=== PATIENT | female | born 1940 | race Caucasian/White ===

== ENCOUNTER → 2018-07-21 13:24 | Outpatient (REF) | payer OTHER, SELFPAY | LOC: LAB 13:24 | PROVIDERS: PCP Family Medicine; Visit Provider Family Medicine | DX: R31.9 Hematuria, unspecified (principal) | CPT/HCPCS: 87086 ==

== ENCOUNTER → 2019-02-20 13:19 | Outpatient (CLI) | payer OTHER, SELFPAY ==
--- NOTE | 2019-02-20 | DI.RAD.S_ITS ---
PROCEDURE: XR CHEST 2V INDICATIONS: COUGH TECHNIQUE: 2 views of the chest were acquired. COMPARISON: [facility], , CHEST 2 VIEW, 08/18/2014, 11:07. FINDINGS: Surgical changes and devices: None. Lungs and pleura: Lungs are clear but the lung volumes are relatively large. COPD may be present.. No pleural effusions or pneumothorax. Mediastinum: Mediastinal contours are normal. Heart size is normal. Bones and chest wall: No suspicious bony abnormalities. Soft tissues appear unremarkable. IMPRESSION: Normal for age except for a relatively large lung volumes which could indicate presence of COPD. However, aggressive inspiratory effort also could produce this appearance. Source of current persistent cough symptoms is not seen. Dictated by: Mao Parham M.D. on 02/20/2019 at 15:05 Approved by: Mao Parham M.D. on 02/20/2019 at 15:06
== END ==
PROVIDERS: PCP Student in an Organized Health Care Education/Training Program; Visit Provider Internal Medicine
DX: R05 Cough (principal)
CPT/HCPCS: 71046

== ENCOUNTER → 2019-03-06 14:56 | Outpatient (CLI) | payer OTHER, SELFPAY ==
--- NOTE | 2019-03-06 | DI.US.S_ITS ---
PROCEDURE: US SOFT TISSUE HEAD AND NECK INDICATIONS: L NECK MASS TECHNIQUE: Real-time scanning was performed of the neck region of interest, with image documentation. COMPARISON: None. FINDINGS: No sonographic abnormality seen involving the left supraclavicular fossa in the region of swelling. IMPRESSION: 1. No sonographic abnormality. Dictated by: Fadi MILLER Interpreted: Mao Parham MD on 03/06/2019 at 16:30 Approved by: Mao Parham M.D. on 03/06/2019 at 17:53
== END ==
PROVIDERS: PCP Student in an Organized Health Care Education/Training Program; Visit Provider Student in an Organized Health Care Education/Training Program
DX: R22.1 Localized swelling, mass and lump, neck (principal); Z12.31 Encounter for screening mammogram for malignant neoplasm of breast
CPT/HCPCS: 76536

== ENCOUNTER → 2019-03-25 08:57 | Outpatient (CLI) | payer OTHER, SELFPAY ==
--- NOTE | 2019-03-25 | DI.US.S_ITS ---
ULTRASOUND OF LEFT BREAST: 03/25/2019 CLINICAL: Palpable left breast lump by physician. Comparison is made to exams dated: 03/25/2019 mammogram, 10/22/2014 mammogram, 03/24/2011 mammogram, 10/10/2013 mammogram, 10/08/2012 mammogram, and 10/06/2011 mammogram - [facility]. Real-time ultrasound of the left breast was performed. Connolly scale images of the real-time examination were reviewed. No abnormalities were seen sonographically in the left breast. IMPRESSION: NEGATIVE There is no sonographic evidence of malignancy. There is no abnormality seen in the left breast to correspond with the area of clinical concern at 1 o'clock position or the upper outer quadrant, however, clinical followup is recommended for persistent clinical symptoms. A 1 year screening mammogram is recommended. This exam was interpreted at Station ID: [id number]. Electronically Signed By: Janes Meraz M.D. aty/:03/25/2019 10:16:33 letter sent: Normal Exam Ultrasound BI-RADS: 1 Negative
--- NOTE | 2019-03-25 | DI.MG.S_ITS ---
BILATERAL DIGITAL DIAGNOSTIC MAMMOGRAM 3D/2D: 03/25/2019 CLINICAL: Left breast mass Family history of breast cancer. Comparison is made to exams dated: 10/22/2014 mammogram, 10/10/2013 mammogram, and 10/08/2012 mammogram - [facility]. The tissue of both breasts is extremely dense, which lowers the sensitivity of mammography. No significant masses, calcifications, or other findings are seen in either breast. IMPRESSION: INCOMPLETE: NEEDS ADDITIONAL IMAGING EVALUATION There is no abnormality seen in the left breast to correspond with the area of clinical concern in the upper outer quadrant, however, ultrasound is recommended and is scheduled to immediately follow this examination. This exam was interpreted at Station ID: [id number]. NOTE: For mammograms, a report in lay terms will be sent to the patient. Approximately 15% of breast malignancies will not be visualized mammographically. In the management of a palpable breast mass, a negative mammogram must not discourage biopsy of a clinically suspicious lesion. Electronically Signed By: Janes Meraz M.D. aty/:03/25/2019 10:14:43 ACR BI-RADS Category 0: Incomplete [id number]
== END ==
PROVIDERS: PCP Student in an Organized Health Care Education/Training Program; Visit Provider Student in an Organized Health Care Education/Training Program
DX: R92.8 Other abnormal and inconclusive findings on diagnostic imaging of breast (principal); N63.21 Unspecified lump in the left breast, upper outer quadrant; Z85.3 Personal history of malignant neoplasm of breast
CPT/HCPCS: 76642; 77066; G0279

== ENCOUNTER → 2019-09-04 14:52 | Outpatient (CLI) | payer OTHER, SELFPAY ==
--- NOTE | 2019-09-04 | DI.RAD.S_ITS ---
PROCEDURE: XR FEMUR RT MIN 2V INDICATIONS: right leg pain TECHNIQUE: 4 views of the femur were acquired. COMPARISON: None. FINDINGS: Bones: No fractures or dislocations. No suspicious bony lesions. Soft tissues: No suspicious soft tissue calcifications or masses. IMPRESSION: No trauma found, source of pain is not seen. Dictated by: Mao Parham M.D. on 09/04/2019 at 15:30 Approved by: Mao Parham M.D. on 09/04/2019 at 15:31
== END ==
PROVIDERS: PCP Student in an Organized Health Care Education/Training Program; Visit Provider Student in an Organized Health Care Education/Training Program
DX: M79.604 Pain in right leg (principal)
CPT/HCPCS: 73552

== ENCOUNTER → 2020-01-03 07:29 | Outpatient (CLI) | payer OTHER, SELFPAY ==
--- NOTE | 2020-01-03 | DI.MRI.S_ITS ---
PROCEDURE: MR FEMUR RT WO CON INDICATIONS: Pain in right leg TECHNIQUE: Noncontrast coronal and sagittal T1 spin echo and STIR; axial T1 spin echo and T2 fast spin echo with fat saturation through the right thigh. COMPARISON: [facility], CR, XR FEMUR RT MIN 2V, 09/04/2019, 14:58. FINDINGS: Image quality: Excellent. Bones: The visualized bone marrow demonstrates normal signal on all sequences. The overlying cortex appears intact. No fractures lines or intra-osseous lesions. Mild right hip joint osteoarthritic changes are seen. No evidence of avascular necrosis of femoral head. Soft tissues: The scanned muscles demonstrate normal overall bulk and internal signal. Subcutaneous tissues appear normal as well. No soft tissue masses are present. Small amount of right knee joint effusion is seen. No intra-articular loose body. IMPRESSION: 1. 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 No marrow edema. No suspicious bony lesion. No fracture or dislocation. No evidence of avascular necrosis of femoral head. 2. Small right knee joint effusion, no intra-articular loose body. No muscle or tendon abnormality is seen in right side. No finding to explain patient's symptoms. Dictated by: Bebo Kat M.D. on 01/03/2020 at 10:53 Approved by: Bebo Kat M.D. on 01/03/2020 at 11:27
== END ==
PROVIDERS: PCP Student in an Organized Health Care Education/Training Program; Referring Provider Student in an Organized Health Care Education/Training Program; Visit Provider Student in an Organized Health Care Education/Training Program
DX: M79.604 Pain in right leg (principal); M16.11 Unilateral primary osteoarthritis, right hip; M17.11 Unilateral primary osteoarthritis, right knee; M25.461 Effusion, right knee
CPT/HCPCS: 73718

== ENCOUNTER → 2020-06-08 13:33 | Outpatient (CLI) | payer OTHER, SELFPAY ==
--- NOTE | 2020-06-08 | DI.RAD.S_ITS ---
PROCEDURE: XR DEXA AXIAL SKELETON INDICATIONS: OSTEOPENIA COMPARISON: None. FINDINGS: This blank DEXA report has been sent in error by the PACS system. The correct and complete report will be forthcoming in 1-2 days. Thank you for your patience and understanding. Dictated by: Jen Martinez MD, PhD on 06/08/2020 at 16:50 Approved by: Jen Martinez MD, PhD on 06/08/2020 at 16:50
== END ==
PROVIDERS: PCP Student in an Organized Health Care Education/Training Program; Referring Provider Student in an Organized Health Care Education/Training Program; Visit Provider Student in an Organized Health Care Education/Training Program
DX: M85.852 Other specified disorders of bone density and structure, left thigh (principal); Z78.0 Asymptomatic menopausal state; Z82.62 Family history of osteoporosis
CPT/HCPCS: 77080

== ENCOUNTER 2020-09-12 11:56 | Emergency (ER) | payer OTHER, SELFPAY ==
[2020-09-12] VITALS (13 sets, daily range): BP systolic 139–215; BP diastolic 77–92; PULSE 81–126; RESP 13–23; TEMP 36.9; O2SAT 97–100; BMI 21.9
--- NOTE | 2020-09-12 12:12 | DI.RAD.S_ITS ---
PROCEDURE: XR CHEST 1V INDICATIONS: chest pain TECHNIQUE: One view of the chest was acquired. COMPARISON: [facility]ed With [facility], , CHEST 2 VIEW, 08/18/2014, 11:07. Merged With [facility], , XR CHEST 2V, 02/20/2019, 13:31. FINDINGS: Surgical changes and devices: None. Lungs and pleura: On this semiupright portable chest examination, no large pneumothorax or large pleural effusions are seen. No focal infiltrates are seen. Mediastinum: The cardiac contours are within normal limits. The aorta demonstrates calcification and tortuosity. Bones and chest wall: No suspicious bony lesions. Age-appropriate bony degenerative changes are seen. Overlying soft tissues appear unremarkable. IMPRESSION: Portable chest study within normal limits for age. Dictated by: Christian Moser M.D. on 09/12/2020 at 11:24 Approved by: Christian Moser M.D. on 09/12/2020 at 11:24
[2020-09-12 12:27] LABS: Add Manual Diff / Slide Review NO; Basophils Absolute Auto 0 /uL (0-100); Basophils Percent Auto 0.6 % (0-2); Eosinophils Absolute Auto 100 /uL (0-450); Hematocrit 45.4 % (36-46); Lymphocytes Absolute Auto 2100 /uL (1100-4500); Lymphocytes Percent Auto 30.3 % (25-40); Mean Corpuscular Hemoglobin 31.2 PG (26-34); Mean Corpuscular Volume 94.8 fL (80-100); Monocytes Absolute Auto 400 /uL (0-900); Monocytes Percent Auto 6.2 % (3-14); Neutrophils Absolute Auto 4300 /uL (1500-7000); Neutrophils Percent Auto 61.9 % (50-75); Platelet Count 302 X10^3/uL (150-400); Red Blood Cell Count 4.79 X10^6/uL (4.0-5.2); Red Cell Distribution Width 13.7 % (11.6-14.8)
[2020-09-12 12:40] LABS: Alanine Aminotransferase 17 IU/L (<35); Albumin 4.7 g/dL (3.5-5.0); Albumin Globulin Ratio 1.4 (1.0-2.8); Alkaline Phosphatase 63 U/L (38-126); Aspartate Aminotransferase 27 IU/L (14-36); BUN Creatinine Ratio 17.8 (6-22); Bilirubin Total 0.3 mg/dL (0.2-1.3); Blood Urea Nitrogen 13 mg/dL (7-17); Calcium 10.5 mg/dL (8.4-10.2); Carbon Dioxide 29 mmol/L (22-32); Chloride 104 mmol/L (98-107); Creatine Kinase 36 U/L (30-135); Estimated Glomerular Filt Rate > 60.0 mL/min (>60); Globulin 3.3 g/dL (1.7-4.1); Glucose 133 mg/dL (80-110); HEMOLYSIS < 15 (0-50); INR 0.9 (0.9-1.3); Lipase 156 U/L (23-300); Sodium 140 mmol/L (137-145)
[2020-09-12 12:42] LABS: PTT Partial Thromboplastin Tim 27 SECONDS (26.4-36.2)
[2020-09-12 12:51] LABS: Troponin I < 0.012 ng/mL (0.01-0.034)
[2020-09-12 12:54] LABS: NT-proBNP (BNP-Adult 18+) 132 pg/mL (<450)
--- NOTE | 2020-09-12 13:05 | ED.ARRPALP ---
HPI - Arrhythmia/Palpitations General Chief Complaint: Arrhythmia/Palpitations Stated Complaint: arrhythmia Time Seen by Provider: 09/12/20 11:58 Source: patient Mode of arrival: Ambulatory Limitations: no limitations History of Present Illness HPI narrative: Patient is a 80-year-old female no past known medical history who does admit to drinking alcohol daily presents today with heart palpitations. She says since around 5:00 a.m. she has felt her heart skip a beat. She denies any chest pain dizziness or lightheadedness. She denies any syncopal episodes. She says she has just felt her heart skipping a beat. She admits to drinking 2 cups of coffee daily but no other significant caffeine use. She is drinks about a 6 pack of Wilkes light daily. No prior history of alcohol withdrawal, and she drink that last night. MD complaint: skipped beats Onset (ago): hour(s) Duration: constant Context: occurred during rest Related Data Home Medications Medication Instructions Recorded Confirmed acetaminophen 650 mg PO QID PRN #0 02/22/17 09/12/20 cholecalciferol (vitamin D3) 4,000 iu PO QDAY #0 02/22/17 09/12/20 [Vitamin D3] alendronate 70 mg PO DAILY 09/12/20 09/12/20 fluticasone propionate 1 spray INTRANASAL DAILY 09/12/20 09/12/20 Allergies Allergy/AdvReac Type Severity Reaction Status Date / Time codeine Allergy Mild N/V Verified 09/12/20 12:09 hydrocodone [HYDROCODONE] Allergy Mild N/V Verified 09/12/20 12:09 oxycodone [OXYCODONE] Allergy Mild N/V Verified 09/12/20 12:09 propoxyphene [From DARVON] Allergy Mild N/V Verified 09/12/20 12:09 bupivacaine Allergy Unknown Verified 09/12/20 12:09 NARCOTIC ANTAGONIST OBSOLETE Allergy Unknown UNK Uncoded 11/22/17 13:07 Review of Systems Review of Systems Narrative: GENERAL: Denies chills, fatigue, malaise, fever, sweats, travel HEENT: Denies sinus pain, ear pain, sore throat, difficulty swallowing, neck pain RESPIRATORY: Denies dyspnea, cough, wheezing, hemoptysis, sputum. CARDIOVASCULAR: See HPI GASTROINTESTINAL: Denies nausea, vomiting, abdominal pain, diarrhea, constipation, melena. : Denies dysuria, frequency, incontinence, hematuria, urinary retention, flank pain. MUSCULOSKELETAL: Denies weakness, joint pain, or bony pain SKIN: No rash, no erythema, no pruritus NEUROLOGIC: Denies weakness, dizziness, headache, numbness, change in speech, confusion PSYCHIATRIC: No concerning psychosocial issues. 12 point review of systems is negative except for those stated above and HPI Patient History Medical History Patient denies medical problems Social History Smoking Status: Former smoker Smoking Status: Former smoker alcohol intake frequency: 3 or more drinks per day Alcohol type: beer Substance Use Type: does not use Exam Initial Vital Signs Initial Vital Signs: Vital Signs Temperature 98.5 F 09/12/20 12:00 Pulse Rate 126 H 09/12/20 12:00 Respiratory Rate 16 09/12/20 12:00 Blood Pressure 215/92 H 09/12/20 12:00 Pulse Oximetry 100 09/12/20 12:00 GENERAL: Well-appearing, well-nourished and in no acute distress. HEENT: Head atraumatic,EOMI, pupils reactive, face symmetric, moist mucous membranes CARDIOVASCULAR: Tachycardic regular no murmurs RESPIRATORY: Breath sounds equal bilaterally, no wheezes rales or rhonchi. ABDOMEN: Soft, nontender. Normoactive bowel sounds all 4 quadrants. No guarding or rebound. EXTREMITIES: Normal range of motion, no clubbing or edema. Neurovascularly intact NEUROLOGICAL: Alert and oriented x4.Normal gait and speech. Cranial nerves II through XII grossly intact. SKIN: Warm, dry, no laceration, no petechiae, no rashes or lesions. Course Orders Ordered: ED Orders 09/12/20 12:12 XR chest 1V Stat EKG-12 Lead Stat 09/12/20 12:15 BNP [NT-proBNP (BNP-Adult 18+)] Stat Complete Blood Count AUTO DIFF Stat Comprehensive Metabolic Panel Stat Lipase Stat Magnesium Stat Partial Thromboplastin Time Stat Prothrombin Time INR Stat TSH w/ Reflex to FT4 Stat Troponin & CK Cardiac Panel Stat Discontinued Medications Sodium Chloride (Normal Saline 0.9%) 1,000 mls @ 1,000 mls/hr IV BOLUS ONE Stop: 09/12/20 14:46 Last Infusion: 09/12/20 14:32 Dose: 0 mls/hr Documented by: Admin: 09/12/20 13:40 Dose: 1,000 mls/hr Documented by: SARA Vital Signs Vital signs: Vital Signs - 8 hr 09/12/20 12:00 09/12/20 12:05 09/12/20 12:15 Temperature 98.5 F Pulse Rate 126 H 123 H 123 H Respiratory Rate 16 16 Blood Pressure 215/92 H Pulse Oximetry 100 100 09/12/20 12:30 09/12/20 12:45 09/12/20 13:00 Temperature Pulse Rate 104 H 96 H 94 H Respiratory Rate 14 14 13 Blood Pressure Pulse Oximetry 97 97 09/12/20 13:15 09/12/20 13:30 09/12/20 13:45 Temperature Pulse Rate 89 89 86 Respiratory Rate 15 14 14 Blood Pressure Pulse Oximetry 97 99 98 09/12/20 13:51 09/12/20 14:00 09/12/20 14:15 Temperature Pulse Rate 92 H 92 H 81 Respiratory Rate 23 14 13 Blood Pressure 139/77 180/80 H Pulse Oximetry 99 100 99 09/12/20 14:30 Temperature Pulse Rate 87 Respiratory Rate 23 Blood Pressure Pulse Oximetry 99 MDM - Arrhythmia/Palpitations Lab Data Attestation: I reviewed the patient's lab results. Result diagrams: 09/12/20 12:15 09/12/20 12:15 Labs: Lab Results 09/12/20 09/12/20 09/12/20 Range/Units 12:15 12:15 12:15 WBC 7.0 (4.5-11.0) X10^3/uL RBC 4.79 (4.0-5.2) X10^6/uL Hgb 15.0 (12.0-16.0) g/dL Hct 45.4 (36-46) % MCV 94.8 (80-100) fL MCH 31.2 (26-34) PG MCHC 33.0 (30-36) % RDW 13.7 (11.6-14.8) % Plt Count 302 (150-400) X10^3/uL Neut % (Auto) 61.9 (50-75) % Lymph % (Auto) 30.3 (25-40) % Meagher % (Auto) 6.2 (3-14) % Eos % (Auto) 1.0 L (2-4) % Baso % (Auto) 0.6 (0-2) % Neut # (Auto) 4300 (9115-6184) /uL Lymph # (Auto) 2100 (8736-5940) /uL Meagher # (Auto) 400 (0-900) /uL Eos # (Auto) 100 (0-450) /uL Baso # (Auto) 0 (0-100) /uL PT 10.0 L (10.1-12.7) SECONDS INR 0.9 (0.9-1.3) APTT 27 (26.4-36.2) SECONDS Sodium 140 (137-145) mmol/L Potassium 4.0 (3.4-5.1) mmol/L Chloride 104 (98-107) mmol/L Carbon Dioxide 29 (22-32) mmol/L BUN 13 (7-17) mg/dL Creatinine 0.73 (0.52-1.04) mg/dL Estimated GFR > 60.0 (>60) mL/min BUN/Creatinine Ratio 17.8 (6-22) Glucose 133 H (80-110) mg/dL Calcium 10.5 H (8.4-10.2) mg/dL Magnesium 2.0 (1.6-2.3) mg/dL Total Bilirubin 0.3 (0.2-1.3) mg/dL AST 27 (14-36) IU/L ALT 17 (<35) IU/L Alkaline Phosphatase 63 (38-126) U/L Total Creatine Kinase 36 (30-135) U/L CK-MB (CK-2) TNP CK-MB (CK-2) Rel Index TNP Troponin I < 0.012 (0.01-0.034) ng/mL NT-Pro-B Natriuret Pep (<450) pg/mL Total Protein 8.0 (6.3-8.2) g/dL Albumin 4.7 (3.5-5.0) g/dL Globulin 3.3 (1.7-4.1) g/dL Albumin/Globulin Ratio 1.4 (1.0-2.8) Lipase 156 (23-300) U/L TSH (0.47-4.68) uIU/mL 09/12/20 09/12/20 Range/Units 12:15 12:15 WBC (4.5-11.0) X10^3/uL RBC (4.0-5.2) X10^6/uL Hgb (12.0-16.0) g/dL Hct (36-46) % MCV (80-100) fL MCH (26-34) PG MCHC (30-36) % RDW (11.6-14.8) % Plt Count (150-400) X10^3/uL Neut % (Auto) (50-75) % Lymph % (Auto) (25-40) % Meagher % (Auto) (3-14) % Eos % (Auto) (2-4) % Baso % (Auto) (0-2) % Neut # (Auto) (1832-7381) /uL Lymph # (Auto) (5431-0133) /uL Meagher # (Auto) (0-900) /uL Eos # (Auto) (0-450) /uL Baso # (Auto) (0-100) /uL PT (10.1-12.7) SECONDS INR (0.9-1.3) APTT (26.4-36.2) SECONDS Sodium (137-145) mmol/L Potassium (3.4-5.1) mmol/L Chloride (98-107) mmol/L Carbon Dioxide (22-32) mmol/L BUN (7-17) mg/dL Creatinine (0.52-1.04) mg/dL Estimated GFR (>60) mL/min BUN/Creatinine Ratio (6-22) Glucose (80-110) mg/dL Calcium (8.4-10.2) mg/dL Magnesium (1.6-2.3) mg/dL Total Bilirubin (0.2-1.3) mg/dL AST (14-36) IU/L ALT (<35) IU/L Alkaline Phosphatase (38-126) U/L Total Creatine Kinase (30-135) U/L CK-MB (CK-2) CK-MB (CK-2) Rel Index Troponin I (0.01-0.034) ng/mL NT-Pro-B Natriuret Pep 132 (<450) pg/mL Total Protein (6.3-8.2) g/dL Albumin (3.5-5.0) g/dL Globulin (1.7-4.1) g/dL Albumin/Globulin Ratio (1.0-2.8) Lipase (23-300) U/L TSH 1.60 (0.47-4.68) uIU/mL Imaging Data Chest x-ray: Radiologist's Impresson: PROCEDURE: XR CHEST 1V INDICATIONS: chest pain TECHNIQUE: One view of the chest was acquired. COMPARISON: [facility], , CHEST 2 VIEW, 08/18/2014, 11:07. [facility], , XR CHEST 2V, 02/20/2019, 13:31. FINDINGS: Surgical changes and devices: None. Lungs and pleura: On this semiupright portable chest examination, no large pneumothorax or large pleural effusions are seen. No focal infiltrates are seen. Mediastinum: The cardiac contours are within normal limits. The aorta demonstrates calcification and tortuosity. Bones and chest wall: No suspicious bony lesions. Age-appropriate bony degenerative changes are seen. Overlying soft tissues appear unremarkable. IMPRESSION: Portable chest study within normal limits for age. Dictated by: Christian Moser M.D. on 09/12/2020 at 11:24 ECG Data Attestation: I personally reviewed and interpreted this ECG as follows: Prior ECG tracings: not available for review Interpretation: Sinus tachycardia rate 110 p.r. interval 150 QRS [address] changes MDM Narrative Medical decision making narrative: Patient's heart rate improved with IV fluid. She is noted to be hypertensive in the emergency department no prior history of hypertension. She seems to be asymptomatic at this time no sign of end-organ damage. At this time I recommend home monitoring and follow-up with primary care provider. We also discussed decreasing alcohol use she states she is trying she does not drink every day just couple times of week. Discharge Plan Departure Patient Disposition: Home Clinical Impression: Symptomatic PVCs Instructions: Premature Ventricular Beats, Essential Hypertension Activity Restrictions/Additional Instructions: *You have been diagnosed with her palpitations, PVCs *What to do: At this time blood work is overall reassuring. It is recommended that he stay hydrated decreased her alcohol intake. Please check her blood pressure once daily and record your primary care provider. You may require blood pressure medication it is noted to be elevated in the emergency department today. *Continue to take medications as directed *Follow up with your primary care provider in 2-3 days *Return to ER if you should have in increasing palpitations, chest pain, shortness of breath, dizziness, lightheadedness, passing out or any new, worsening or concerning symptoms Prescriptions: No Action acetaminophen 325 mg tablet 650 mg PO QID PRN (Reason: Pain (Scale Score 4-6)) Qty: 0 RF: 0 cholecalciferol (vitamin D3) [Vitamin D3] 2,000 UNIT capsule 4,000 iu PO QDAY Qty: 0 RF: 0 fluticasone propionate 50 mcg/actuation spray,suspension 1 spray INTRANASAL DAILY RF: 0 alendronate 70 mg tablet 70 mg PO DAILY RF: 0 Referrals: Christy Berry ARNP [Primary Care Provider] -
[2020-09-12] MEDS: SODIUM CHLORIDE 0.9% 1,000 ML 1000 ML IV (13:40)
== END 2020-09-12 14:43 | disposition home or self-care (01) ==
PROVIDERS: Emergency Provider Emergency Medicine; PCP Nurse Practitioner Family
DX: I49.3 Ventricular premature depolarization (principal); I10 Essential (primary) hypertension; R07.9 Chest pain, unspecified
CPT/HCPCS: 36415; 71045; 80053; 82550; 83690; 83735; 83880; 84443; 84484; 85025; 85610; 85730; 93005; 96360; 99283; 99284

== ENCOUNTER → 2021-07-13 12:05 | Outpatient (CLI) | payer OTHER, SELFPAY ==
--- NOTE | 2021-07-13 12:09 | DI.RAD.S_ITS ---
PROCEDURE: XR LUMBAR SPINE 2-3V INDICATIONS: LOW BACK PAIN TECHNIQUE: 3 views of the lumbar spine were acquired. COMPARISON: CR, CHEST 2 VIEW, 08/18/2014, 11:07. FINDINGS: Bones: 5 [id number] vertebrae are present. Trace levo curvature centered at the T11 level. Grade 1 spondylolisthesis L4-L5. Mild multilevel disc degeneration and moderate facet joint arthropathy at the L4-L5 and L5-S1 levels.. No vertebral body compression fractures. No suspicious bony lesions. Soft tissues: Overlying bowel gas pattern is normal. No suspicious soft tissue calcifications. IMPRESSION: Multilevel spondylosis. Dictated by: Fadi Campos [facility] Interpreted: Clary Parrish MD on 07/13/2021 at 13:29 Transcribed by: MIROSLAVA on 07/13/2021 at 13:30 Approved by: Clary Parrish M.D. on 07/13/2021 at 16:46
== END ==
PROVIDERS: PCP Nurse Practitioner Family; Referring Provider Internal Medicine; Visit Provider Internal Medicine
DX: M54.50 Low back pain, unspecified (principal); M47.816 Spondylosis without myelopathy or radiculopathy, lumbar region; M47.817 Spondylosis without myelopathy or radiculopathy, lumbosacral region
CPT/HCPCS: 72100

== ENCOUNTER → 2021-08-17 10:58 | Outpatient (CLI) | payer OTHER, SELFPAY ==
--- NOTE | 2021-08-17 11:04 | DI.US.S_ITS ---
PROCEDURE: US PERIPH VENOUS LOW EXTREM LT INDICATIONS: RULE OUT DVT TECHNIQUE: Real-time imaging, as well as color and pulse Doppler interrogation, were performed of the lower extremity deep veins from the inguinal ligament to the popliteal fossa. COMPARISON: None. FINDINGS: The common femoral, femoral and popliteal veins are normally compressible, and free of intraluminal thrombus. Color and pulse Doppler demonstrate normal phasic intraluminal flow. There is normal augmentation response to distal compression maneuver. IMPRESSION: No deep venous thrombosis identified within the left lower extremity. Dictated by: Fadi Campos [facility] Interpreted: Mame Cadena MD on 08/17/2021 at 12:04 Transcribed by: SD on 08/17/2021 at 12:06 Approved by: Mame Cadena M.D. on 08/17/2021 at 16:08
--- NOTE | 2021-08-17 11:04 | DI.RAD.S_ITS ---
PROCEDURE: XR KNEE LT 3V INDICATIONS: LT KNEE PAIN TECHNIQUE: 3 views of the knee were acquired. COMPARISON: [facility], , KNEE 3V RIGHT, 12/25/2015, 14:45. FINDINGS: Bones: No fractures or dislocations. No suspicious bony lesions. Mild degenerative change. Soft tissues: Small joint effusion. No suspicious soft tissue calcifications. IMPRESSION: Mild degenerative change. Small knee joint effusion. No evidence acute bony abnormality of the left knee. If clinical suspicion and/or symptoms persist, further assessment with repeat plain films, or advanced imaging (e.g., CT, MRI, or bone scan) may be helpful for further assessment. Dictated by: Xander Adams M.D. on 08/17/2021 at 14:04 Approved by: Xander Adams M.D. on 08/17/2021 at 14:07
== END ==
PROVIDERS: PCP Internal Medicine; Referring Provider Internal Medicine; Visit Provider Internal Medicine
DX: M25.462 Effusion, left knee (principal); M79.605 Pain in left leg; M25.562 Pain in left knee; M79.89 Other specified soft tissue disorders
CPT/HCPCS: 73562; 93971

== ENCOUNTER 2021-11-04 03:36 | Observation (INO) | payer OTHER, SELFPAY ==
[2021-11-04] VITALS (27 sets, daily range): BP systolic 113–214; BP diastolic 51–108; PULSE 71–110; RESP 12–22; TEMP 36.2–37.7; O2SAT 95–100; BMI 22.6; BMI 23.7
--- NOTE | 2021-11-04 03:38 | ED_ITS ---
HPI - Chest Pain General Chief Complaint: Arrhythmia/Palpitations Stated Complaint: high bp and heart skipping beats Time Seen by Provider: 11/04/21 03:37 History of Present Illness HPI narrative: 81-year-old female nonsmoker with no significant chronic medical history presents for evaluation of palpitations and high blood pressure. She states that she has been her normal state of health and went to bed at her regular time. She woke feeling unwell, perhaps a bit shaky with palpitations. She took her blood pressure and found it to be in the 190s. She denies any headache or blurred vision. She has no difficulty swallowing, ambulating and denies pain. She has no fever, but has chills and teeth chattering. She denies dysuria, frequency, or urgency. Related Data Home Medications Medication Instructions Recorded Confirmed acetaminophen 325 mg tablet 650 mg PO QID PRN #0 02/22/17 11/04/21 cholecalciferol (vitamin D3) 50 4,000 iu PO QDAY #0 02/22/17 11/04/21 mcg (2,000 unit) capsule (Vitamin D3) fluticasone propionate 50 1 spray INTRANASAL DAILY 09/12/20 11/04/21 mcg/actuation nasal spray,suspension Previous Rx's Medication Instructions Recorded amoxicillin 500 mg-potassium 1 tab PO BID #14 tab 11/05/21 clavulanate 125 mg tablet (Augmentin) Allergies Allergy/AdvReac Type Severity Reaction Status Date / Time codeine Allergy Mild N/V Verified 09/12/20 12:09 hydrocodone [HYDROCODONE] Allergy Mild N/V Verified 09/12/20 12:09 oxycodone [OXYCODONE] Allergy Mild N/V Verified 09/12/20 12:09 propoxyphene [From DARVON] Allergy Mild N/V Verified 09/12/20 12:09 bupivacaine Allergy Unknown Verified 09/12/20 12:09 NARCOTIC ANTAGONIST OBSOLETE Allergy Unknown UNK Uncoded 11/22/17 13:07 Review of Systems Review of Systems Narrative: GENERAL: see HPI HEENT: Denies sinus pain, ear pain, sore throat, difficulty swallowing, dizziness. RESPIRATORY: Denies dyspnea, cough, wheezing, hemoptysis, sputum. CARDIOVASCULAR: See HPI GASTROINTESTINAL: Denies nausea, vomiting, abdominal pain, diarrhea, constipatio n, melena. : Denies dysuria, frequency, incontinence, hematuria, urinary retention. MUSCULOSKELETAL: denies weakness, joint pain, or bony pain SKIN: Denies rash, skin lesions, or other NEUROLOGIC: Denies weakness, headache, numbness, change in speech, confusion, seizures, incoordination. PSYCHIATRIC: No concerning psychosocial issues. 12 point review of systems is negative except for those stated above Patient History Medical History Patient denies medical problems Social History household members: spouse Smoking Status: Never smoker Smoking Status: Former smoker alcohol intake frequency: 3 or more drinks per day Alcohol type: beer Substance Use Type: does not use Exam Narrative Exam Narrative: GENERAL: [81] year old patient appears stated age. Well-developed patient, appears unwell, shaking/rigors HEAD: Atraumatic. Normocephalic. EYES: Pupils equal round and reactive. Extraocular motions intact. No scleral icterus. No injection or drainage. ENT: Nose without bleeding, purulent drainage. Throat without erythema, tonsillar hypertrophy or exudate. Airway patent. NECK: Trachea midline. Non tender CARDIOVASCULAR: Regular rate and rhythm without murmurs, gallops, or rubs. RESPIRATORY: Clear to auscultation. Breath sounds equal bilaterally. No wheezes, rales, or rhonchi. GASTROINTESTINAL: Abdomen soft, non-tender, nondistended. EXTREMITIES: No edema or joint tenderness. BACK: Nontender without deformity or crepitance. No flank tenderness. NEURO: AOx3. SKIN: No rash or erythema of visible areas Initial Vital Signs Initial Vital Signs: Vital Signs Pulse Rate 99 H 11/04/21 03:42 Respiratory Rate 13 11/04/21 03:42 Pulse Oximetry 100 11/04/21 03:42 Course Orders Ordered: Discontinued Medications Acetaminophen (Acetaminophen 325 Mg Tablet) 650 mg PO Q6HR [facility] Last Admin: 11/04/21 13:33 Dose: Not Given Documented by: BALDEMAR Acetaminophen (Acetaminophen 325 Mg Tablet) 650 mg PO Q6HR PRN PRN Reason: Pain/fever Stop: 11/07/21 13:35 Last Admin: 11/05/21 10:50 Dose: 650 mg Documented by: BARRIE Al Hydrox/Mg Hydrox/Simethicone (Mag Hydrox/Alum/Simeth 30 Ml Udc) 30 ml PO Q6HR PRN PRN Reason: Dyspepsia Bisacodyl (Bisacodyl 10 Mg Supp) 10 mg PA DAILY PRN PRN Reason: Constipation POTASSIUM CHLORIDE IN WATER (Potassium Cl 10 Meq/100 Ml Yoselyn) 10 meq in 100 mls @ 100 mls/hr IV Q1H WAQAR Stop: 11/04/21 06:29 Last Infusion: 11/04/21 06:59 Dose: 0 mls/hr Documented by: Admin: 11/04/21 05:40 Dose: 100 mls/hr Documented by: Infusion: 11/04/21 05:32 Dose: 100 mls/hr Documented by: Admin: 11/04/21 04:32 Dose: 100 mls/hr Documented by: YU Ceftriaxone Sodium 1,000 mg/ (Sodium Chloride) 100 mls @ 200 mls/hr IV NOW ONE Stop: 11/04/21 04:31 Last Infusion: 11/04/21 05:45 Dose: 0 mls/hr Documented by: Admin: 11/04/21 05:05 Dose: 200 mls/hr Documented by: YU Sodium Chloride (Normal Saline 0.9%) 1,000 mls @ 1,000 mls/hr IV BOLUS ONE Stop: 11/04/21 06:12 Last Infusion: 11/04/21 06:07 Dose: 0 mls/hr Documented by: Admin: 11/04/21 05:17 Dose: 1,000 mls/hr Documented by: YU Sodium Chloride (Normal Saline 0.9%) 1,000 mls @ 100 mls/hr IV CONT WAQAR Last Admin: 11/05/21 04:31 Dose: 100 mls/hr Documented by: Infusion: 11/05/21 04:31 Dose: 100 mls/hr Documented by: Admin: 11/04/21 18:51 Dose: 100 mls/hr Documented by: Infusion: 11/04/21 18:51 Dose: 100 mls/hr Documented by: Admin: 11/04/21 09:15 Dose: 100 mls/hr Documented by: BARRIE Ceftriaxone Sodium 2,000 mg/ (Sodium Chloride) 100 mls @ 200 mls/hr IV Q24H WAQAR Stop: 11/06/21 04:59 Last Admin: 11/05/21 05:13 Dose: 200 mls/hr Documented by: CARSON Labetalol HCl (Labetalol 20 Mg/4 Ml Syringe) 10 mg IV NOW ONE Stop: 11/04/21 04:12 Last Admin: 11/04/21 04:15 Dose: 10 mg Documented by: YU Naloxone HCl (Naloxone 0.4 Mg/Ml Vial) 0.2 mg IV Q2MIN PRN PRN Reason: Opiate Reversal Ondansetron HCl (Ondansetron 4 Mg/2 Ml Inj) 4 mg IV Q8HR PRN PRN Reason: Nausea And Vomiting Potassium Chloride (Potassium Chloride 20 Meq/15 Ml Udc) 40 meq PO NOW ONE Stop: 11/04/21 04:21 Last Admin: 11/04/21 04:36 Dose: 40 meq Documented by: YU Vital Signs Vital signs: Vital Signs - 8 hr 11/04/21 03:42 11/04/21 03:43 11/04/21 04:00 Temperature 97.5 F L Pulse Rate 99 H 98 H 93 H Respiratory Rate 13 17 15 Blood Pressure 214/82 H 188/85 H Pulse Oximetry 100 100 100 11/04/21 04:15 11/04/21 04:21 11/04/21 04:25 Temperature Pulse Rate 99 H 83 75 Respiratory Rate 21 12 Blood Pressure 188/89 H 144/67 H 154/73 H Pulse Oximetry 100 100 11/04/21 04:30 11/04/21 04:35 11/04/21 04:40 Temperature Pulse Rate 109 H 76 110 H Respiratory Rate 13 13 16 Blood Pressure 162/72 H 189/75 H 173/72 H Pulse Oximetry 100 100 11/04/21 04:46 11/04/21 04:57 11/04/21 05:00 Temperature Pulse Rate 78 75 Respiratory Rate 20 22 Blood Pressure 169/108 H 164/78 H 159/76 H Pulse Oximetry 95 99 11/04/21 05:11 11/04/21 05:15 11/04/21 05:30 Temperature Pulse Rate 84 81 79 Respiratory Rate 17 20 Blood Pressure 159/76 H 158/68 H 145/63 H Pulse Oximetry 98 99 11/04/21 05:45 11/04/21 06:00 11/04/21 06:15 Temperature Pulse Rate 85 80 79 Respiratory Rate 18 15 19 Blood Pressure 139/66 148/72 H 143/69 H Pulse Oximetry 99 98 99 11/04/21 06:30 Temperature Pulse Rate 78 Respiratory Rate 15 Blood Pressure 144/74 H Pulse Oximetry 99 MDM - Chest Pain Lab Data Result diagrams: 11/05/21 06:15 11/05/21 06:15 Labs: Lab Results 11/04/21 11/04/21 11/04/21 Range/Units 03:45 03:45 03:45 WBC 6.5 (4.5-11.0) X10^3/uL RBC 4.48 (4.0-5.2) X10^6/uL Hgb 14.1 (12.0-16.0) g/dL Hct 41.7 (36-46) % MCV 93.2 (80-100) fL MCH 31.5 (26-34) PG MCHC 33.9 (30-36) % RDW 13.7 (11.6-14.8) % Plt Count 278 (150-400) X10^3/uL Neut % (Auto) 39.4 L (50-75) % Lymph % (Auto) 47.4 H (25-40) % [place] % (Auto) 8.7 (3-14) % Eos % (Auto) 3.7 (2-4) % Baso % (Auto) 0.8 (0-2) % Neut # (Auto) 2600 (0635-8823) /uL Lymph # (Auto) 3100 (1875-4836) /uL [place] # (Auto) 600 (0-900) /uL Eos # (Auto) 200 (0-450) /uL Baso # (Auto) 100 (0-100) /uL D-Dimer 208 (<230) ng/mL Sodium 133 L (137-145) mmol/L Potassium 3.0 L (3.4-5.1) mmol/L Chloride 102 (98-107) mmol/L Carbon Dioxide 22 (22-32) mmol/L BUN 18 H (7-17) mg/dL Creatinine 0.75 (0.52-1.04) mg/dL Estimated GFR > 60.0 (>60) mL/min BUN/Creatinine Ratio 24.0 H (6-22) Glucose 155 H (80-110) mg/dL Lactate (0.7-2.1) mmol/L Calcium 9.4 (8.4-10.2) mg/dL Magnesium (1.6-2.3) mg/dL Total Bilirubin 0.8 (0.2-1.3) mg/dL AST 25 (14-36) IU/L ALT 14 (<35) IU/L Alkaline Phosphatase 74 (38-126) U/L Total Creatine Kinase 60 (30-135) U/L CK-MB (CK-2) TNP CK-MB (CK-2) Rel Index TNP Troponin I < 0.012 (0.01-0.034) ng/mL NT-Pro-B Natriuret Pep 150 (<450) pg/mL Total Protein 7.3 (6.3-8.2) g/dL Albumin 4.3 (3.5-5.0) g/dL Globulin 3.0 (1.7-4.1) g/dL Albumin/Globulin Ratio 1.4 (1.0-2.8) Lipase 152 (23-300) U/L Procalcitonin 0.04 (<0.5) ng/mL TSH (0.47-4.68) uIU/mL Free T4 (0.78-2.19) ng/dL Urine RBC (0-5/HPF) Urine WBC (0-5/HPF) Ur Squamous Epith Cells (0-5/HPF) Urine Bacteria (None) Ur Culture Indicated? Ethyl Alcohol ( - 10) mg/dL SARS-CoV-2 (PCR) (Negative) 11/04/21 11/04/21 11/04/21 Range/Units 03:45 03:45 03:45 WBC (4.5-11.0) X10^3/uL RBC (4.0-5.2) X10^6/uL Hgb (12.0-16.0) g/dL Hct (36-46) % MCV (80-100) fL MCH (26-34) PG MCHC (30-36) % RDW (11.6-14.8) % Plt Count (150-400) X10^3/uL Neut % (Auto) (50-75) % Lymph % (Auto) (25-40) % [place] % (Auto) (3-14) % Eos % (Auto) (2-4) % Baso % (Auto) (0-2) % Neut # (Auto) (9138-6522) /uL Lymph # (Auto) (9668-3859) /uL [place] # (Auto) (0-900) /uL Eos # (Auto) (0-450) /uL Baso # (Auto) (0-100) /uL D-Dimer (<230) ng/mL Sodium (137-145) mmol/L Potassium (3.4-5.1) mmol/L Chloride (98-107) mmol/L Carbon Dioxide (22-32) mmol/L BUN (7-17) mg/dL Creatinine (0.52-1.04) mg/dL Estimated GFR (>60) mL/min BUN/Creatinine Ratio (6-22) Glucose (80-110) mg/dL Lactate 2.6 H (0.7-2.1) mmol/L Calcium (8.4-10.2) mg/dL Magnesium (1.6-2.3) mg/dL Total Bilirubin (0.2-1.3) mg/dL AST (14-36) IU/L ALT (<35) IU/L Alkaline Phosphatase (38-126) U/L Total Creatine Kinase (30-135) U/L CK-MB (CK-2) CK-MB (CK-2) Rel Index Troponin I (0.01-0.034) ng/mL NT-Pro-B Natriuret Pep (<450) pg/mL Total Protein (6.3-8.2) g/dL Albumin (3.5-5.0) g/dL Globulin (1.7-4.1) g/dL Albumin/Globulin Ratio (1.0-2.8) Lipase (23-300) U/L Procalcitonin (<0.5) ng/mL TSH 5.35 H (0.47-4.68) uIU/mL Free T4 1.24 (0.78-2.19) ng/dL Urine RBC (0-5/HPF) Urine WBC (0-5/HPF) Ur Squamous Epith Cells (0-5/HPF) Urine Bacteria (None) Ur Culture Indicated? Ethyl Alcohol < 10 ( - 10) mg/dL SARS-CoV-2 (PCR) (Negative) 11/04/21 11/04/21 11/04/21 Range/Units 03:45 04:50 05:20 WBC (4.5-11.0) X10^3/uL RBC (4.0-5.2) X10^6/uL Hgb (12.0-16.0) g/dL Hct (36-46) % MCV (80-100) fL MCH (26-34) PG MCHC (30-36) % RDW (11.6-14.8) % Plt Count (150-400) X10^3/uL Neut % (Auto) (50-75) % Lymph % (Auto) (25-40) % [place] % (Auto) (3-14) % Eos % (Auto) (2-4) % Baso % (Auto) (0-2) % Neut # (Auto) (6344-1783) /uL Lymph # (Auto) (5265-2668) /uL [place] # (Auto) (0-900) /uL Eos # (Auto) (0-450) /uL Baso # (Auto) (0-100) /uL D-Dimer (<230) ng/mL Sodium (137-145) mmol/L Potassium (3.4-5.1) mmol/L Chloride (98-107) mmol/L Carbon Dioxide (22-32) mmol/L BUN (7-17) mg/dL Creatinine (0.52-1.04) mg/dL Estimated GFR (>60) mL/min BUN/Creatinine Ratio (6-22) Glucose (80-110) mg/dL Lactate (0.7-2.1) mmol/L Calcium (8.4-10.2) mg/dL Magnesium 1.9 (1.6-2.3) mg/dL Total Bilirubin (0.2-1.3) mg/dL AST (14-36) IU/L ALT (<35) IU/L Alkaline Phosphatase (38-126) U/L Total Creatine Kinase (30-135) U/L CK-MB (CK-2) CK-MB (CK-2) Rel Index Troponin I (0.01-0.034) ng/mL NT-Pro-B Natriuret Pep (<450) pg/mL Total Protein (6.3-8.2) g/dL Albumin (3.5-5.0) g/dL Globulin (1.7-4.1) g/dL Albumin/Globulin Ratio (1.0-2.8) Lipase (23-300) U/L Procalcitonin (<0.5) ng/mL TSH (0.47-4.68) uIU/mL Free T4 (0.78-2.19) ng/dL Urine RBC 0-1/hpf (0-5/HPF) Urine WBC None seen (0-5/HPF) Ur Squamous Epith Cells 0-1 /hpf (0-5/HPF) Urine Bacteria Occasional (0-1) (None) Ur Culture Indicated? Cult not indicated Ethyl Alcohol ( - 10) mg/dL SARS-CoV-2 (PCR) Negative (Negative) 11/04/21 11/04/21 Range/Units 06:14 06:14 WBC (4.5-11.0) X10^3/uL RBC (4.0-5.2) X10^6/uL Hgb (12.0-16.0) g/dL Hct (36-46) % MCV (80-100) fL MCH (26-34) PG MCHC (30-36) % RDW (11.6-14.8) % Plt Count (150-400) X10^3/uL Neut % (Auto) (50-75) % Lymph % (Auto) (25-40) % [place] % (Auto) (3-14) % Eos % (Auto) (2-4) % Baso % (Auto) (0-2) % Neut # (Auto) (6320-3815) /uL Lymph # (Auto) (3718-6250) /uL [place] # (Auto) (0-900) /uL Eos # (Auto) (0-450) /uL Baso # (Auto) (0-100) /uL D-Dimer (<230) ng/mL Sodium 135 L (137-145) mmol/L Potassium 4.7 D (3.4-5.1) mmol/L Chloride 109 H (98-107) mmol/L Carbon Dioxide 21 L (22-32) mmol/L BUN 15 (7-17) mg/dL Creatinine 0.63 (0.52-1.04) mg/dL Estimated GFR > 60.0 (>60) mL/min BUN/Creatinine Ratio 23.8 H (6-22) Glucose 139 H (80-110) mg/dL Lactate 3.6 H (0.7-2.1) mmol/L Calcium 8.6 (8.4-10.2) mg/dL Magnesium (1.6-2.3) mg/dL Total Bilirubin (0.2-1.3) mg/dL AST (14-36) IU/L ALT (<35) IU/L Alkaline Phosphatase (38-126) U/L Total Creatine Kinase (30-135) U/L CK-MB (CK-2) CK-MB (CK-2) Rel Index Troponin I (0.01-0.034) ng/mL NT-Pro-B Natriuret Pep (<450) pg/mL Total Protein (6.3-8.2) g/dL Albumin (3.5-5.0) g/dL Globulin (1.7-4.1) g/dL Albumin/Globulin Ratio (1.0-2.8) Lipase (23-300) U/L Procalcitonin (<0.5) ng/mL TSH (0.47-4.68) uIU/mL Free T4 (0.78-2.19) ng/dL Urine RBC (0-5/HPF) Urine WBC (0-5/HPF) Ur Squamous Epith Cells (0-5/HPF) Urine Bacteria (None) Ur Culture Indicated? Ethyl Alcohol ( - 10) mg/dL SARS-CoV-2 (PCR) (Negative) Urine Dip Bedside Urine Glucose Negative Bedside Urine Bilirubin - Negative Bedside Urine Ketone - Negative Urine Specific [place] 1.020 Bedside Urine Occult Blood +/- Bedside Urine pH 6.0 Bedside Urine Protein - Negative Bedside Urine Urobilinogen - Negative Bedside Urine Nitrite - Negative Bedside Urine Leukocytes - Negative Esterase Imaging Data Chest x-ray: Radiologist's Impression: No acute cardiopulmonary abnormality identified MDM Narrative Medical decision making narrative: 81-year-old female presents feeling unwell with shaking, chills and rigors with a rising lactate. No obvious source at this time, patient requires hospitalization for ongoing evaluation and treatment. Discharge Plan Departure Patient Disposition: Admitted as Observation Clinical Impression: Bacteremia, Acute hypokalemia, Weakness Admit Date/Time: 11/04/21 07:07 Admit Provider: Parish Villa
--- NOTE | 2021-11-04 03:48 | DI.RAD.S_ITS ---
PROCEDURE: XR CHEST 1V INDICATIONS: Shortness of breath TECHNIQUE: One view of the chest was acquired. COMPARISON: [facility], CR, XR CHEST 1V, 09/12/2020, 12:14. FINDINGS: Surgical changes and devices: None. Lungs and pleura: Lungs are clear. No pleural effusions or pneumothorax. Mediastinum: Mediastinal contours appear normal. Heart size is normal. Bones and chest wall: No suspicious bony lesions. Overlying soft tissues appear unremarkable. IMPRESSION: No acute pulmonary process. Dictated by: Mame Cadena M.D. on 11/04/2021 at 8:36 Approved by: Mame Cadena M.D. on 11/04/2021 at 8:37
[2021-11-04 03:57] LABS: Add Manual Diff / Slide Review NO; Basophils Absolute Auto 100 /uL (0-100); Basophils Percent Auto 0.8 % (0-2); Eosinophils Absolute Auto 200 /uL (0-450); Eosinophils Percent Auto 3.7 % (2-4); Hematocrit 41.7 % (36-46); Hemoglobin 14.1 g/dL (12.0-16.0); Lymphocytes Absolute Auto 3100 /uL (1100-4500); Lymphocytes Percent Auto 47.4 % (25-40); Mean Corpuscular HGB Conc 33.9 % (30-36); Mean Corpuscular Hemoglobin 31.5 PG (26-34); Mean Corpuscular Volume 93.2 fL (80-100); Monocytes Absolute Auto 600 /uL (0-900); Monocytes Percent Auto 8.7 % (3-14); Neutrophils Absolute Auto 2600 /uL (1500-7000); Neutrophils Percent Auto 39.4 % (50-75); Platelet Count 278 X10^3/uL (150-400); Red Blood Cell Count 4.48 X10^6/uL (4.0-5.2); Red Cell Distribution Width 13.7 % (11.6-14.8); White Blood Cell Count 6.5 X10^3/uL (4.5-11.0)
[2021-11-04 04:05] LABS: D Dimer 208 ng/mL (<230)
[2021-11-04 04:07] LABS: Alanine Aminotransferase 14 IU/L (<35); Albumin 4.3 g/dL (3.5-5.0); Albumin Globulin Ratio 1.4 (1.0-2.8); Alkaline Phosphatase 74 U/L (38-126); Aspartate Aminotransferase 25 IU/L (14-36); Bilirubin Total 0.8 mg/dL (0.2-1.3); Blood Urea Nitrogen 18 mg/dL (7-17); Calcium 9.4 mg/dL (8.4-10.2); Carbon Dioxide 22 mmol/L (22-32); Chloride 102 mmol/L (98-107); Creatine Kinase 60 U/L (30-135); Estimated Glomerular Filt Rate > 60.0 mL/min (>60); Glucose 155 mg/dL (80-110); HEMOLYSIS < 15 (0-50); Lipase 152 U/L (23-300); Sodium 133 mmol/L (137-145); Total Protein 7.3 g/dL (6.3-8.2)
[2021-11-04 04:12] LABS: Ethanol (ETOH) < 10 mg/dL
[2021-11-04] MEDS: LABETALOL 20 MG/4 ML SYRINGE 10 MG IV (04:15)
[2021-11-04 04:19] LABS: NT-proBNP (BNP-Adult 18+) 150 pg/mL (<450); Troponin I < 0.012 ng/mL (0.01-0.034)
[2021-11-04 04:21] LABS: Lactate (Lactic Acid) 2.6 mmol/L (0.7-2.1)
[2021-11-04 04:24] LABS: Procalcitonin 0.04 ng/mL (<0.5)
[2021-11-04] MEDS: POTASSIUM CHLORIDE IN WATER 10 MEQ/100 ML PIGGYBACK 100 MEQ IV ×2 (04:32→05:40)
[2021-11-04 04:34] LABS: Magnesium 1.9 mg/dL (1.6-2.3)
[2021-11-04] MEDS: POTASSIUM CHLORIDE 20 MEQ/15 ML UDC 40 MEQ PO (04:36)
[2021-11-04 04:44] LABS: TSH w/ Reflex to FT4 5.35 uIU/mL (0.47-4.68)
[2021-11-04] MEDS: cefTRIAXone 1,000 MG in SODIUM CHLORIDE 0.9% 100 ML 200 ML IV (05:05)
[2021-11-04 05:11] LABS: Bacteria Urine Occasional (0-1); Culture Indicated Urine Cult Not Indicated; RBC Urine 0-1/HPF (0-5/HPF); Squamous Epithelial Cell Urine 0-1 /HPF (0-5/HPF); WBC Urine None Seen (0-5/HPF)
[2021-11-04 05:17] LABS: Free T4, Direct Thyroxine 1.24 ng/dL (0.78-2.19)
[2021-11-04] MEDS: SODIUM CHLORIDE 0.9% 1,000 ML 1000 ML IV (05:17)
[2021-11-04 05:43] LABS: COVID19 -Nasal RAPID Negative (Negative)
[2021-11-04 06:13] LABS: Reflexed Lactate in 2 Hours Y
[2021-11-04 06:38] LABS: BUN Creatinine Ratio 23.8 (6-22); Blood Urea Nitrogen 15 mg/dL (7-17); Calcium 8.6 mg/dL (8.4-10.2); Carbon Dioxide 21 mmol/L (22-32); Chloride 109 mmol/L (98-107); Estimated Glomerular Filt Rate > 60.0 mL/min (>60); Glucose 139 mg/dL (80-110); HEMOLYSIS < 15 (0-50); Lactate (Lactic Acid) 3.6 mmol/L (0.7-2.1); Potassium 4.7 mmol/L (3.4-5.1); Sodium 135 mmol/L (137-145)
--- NOTE | 2021-11-04 08:15 | PC.NURSE ---
Day shift: Pt on AC unit from ED at approx 0810. She is steady on her feet w/ steady gait. She is A&Ox4. Denies any pain or nausea. RA 98%. BP elevated and the increased BP is the reason she came to the ED today. Dr Villa is seeing Pt at this time. Awaiting MD orders. Pt had an unmeasured void on admit. Oriented to room and call light.
[2021-11-04 08:20] LABS: Reflexed Lactate in 2 Hours Y
--- NOTE | 2021-11-04 08:32 | PM.HP.1 ---
History of Present Illness History of Present Illness Date Patient Seen: 11/04/21 Time Patient Seen: 08:32 Date of Onset of Symptoms: 11/03/21 Chief complaint: high bp and heart skipping beats Narrative: Patient is a 81-year-old white female patient of Janes BLANCO who presents today with acute joint pain and rigors. Patient has felt well with maybe some increased fatigue over the last 24 hours and some joint pain but woke up in the middle the night at 3:00 a.m. with palpitations and not feeling well. Patient was shaking with chills by the time she got here and had no other changes. She has had no fevers or chills no nausea or vomiting no abdominal pain no change in her bowel movements no urinary changes no cough. No headaches. She otherwise is felt quite well. Until last night. Today she is feeling slightly better but has no other changes. Past medical history with hyperlipidemia and no other changes. Past surgical history hysterectomy Family history. Father 60s prostate cancer, mother 92 old age but did have lung cancer, 3 sisters. One of alcoholism, 1 with recovered alcoholism. One with heart disease. Social history retired social service provider. has been. with metastatic colon cancer. Patient History Medical History Patient denies medical problems Family & Social History Safety & Behavioral: Feels Safe in Current Yes Environment Been Physically Hurt or No Threatened By a Person Tobacco & Substance use: Smoking Status Former smoker alcohol intake frequency 3 or more drinks per day Substance Use Type does not use Meds Home Medications and Allergies Home Medications Medication Instructions Recorded Confirmed Type acetaminophen 325 mg tablet 650 mg PO QID PRN #0 02/22/17 09/12/20 History cholecalciferol (vitamin D3) 50 4,000 iu PO QDAY #0 02/22/17 09/12/20 History mcg (2,000 unit) capsule (Vitamin D3) alendronate 70 mg tablet 70 mg PO DAILY 09/12/20 09/12/20 History fluticasone propionate 50 1 spray INTRANASAL DAILY 09/12/20 09/12/20 History mcg/actuation nasal spray,suspension Allergies Allergy/AdvReac Type Severity Reaction Status Date / Time codeine Allergy Mild N/V Verified 09/12/20 12:09 hydrocodone [HYDROCODONE] Allergy Mild N/V Verified 09/12/20 12:09 oxycodone [OXYCODONE] Allergy Mild N/V Verified 09/12/20 12:09 propoxyphene [From DARVON] Allergy Mild N/V Verified 09/12/20 12:09 bupivacaine Allergy Unknown Verified 09/12/20 12:09 NARCOTIC ANTAGONIST OBSOLETE Allergy Unknown UNK Uncoded 11/22/17 13:07 Review of Systems Review of Systems Narrative: Review systems negative except for above Exam Vital Signs (past 8 hours): - 11/04/21 03:42 11/04/21 03:43 11/04/21 04:00 Temperature 97.5 F L Pulse Rate 99 H 98 H 93 H Respiratory Rate 13 17 15 Blood Pressure 214/82 H 188/85 H Pulse Oximetry 100 100 100 11/04/21 04:15 11/04/21 04:21 11/04/21 04:25 Temperature Pulse Rate 99 H 83 75 Respiratory Rate 21 12 Blood Pressure 188/89 H 144/67 H 154/73 H Pulse Oximetry 100 100 11/04/21 04:30 11/04/21 04:35 11/04/21 04:40 Temperature Pulse Rate 109 H 76 110 H Respiratory Rate 13 13 16 Blood Pressure 162/72 H 189/75 H 173/72 H Pulse Oximetry 100 100 11/04/21 04:46 11/04/21 04:57 11/04/21 05:00 Temperature Pulse Rate 78 75 Respiratory Rate 20 22 Blood Pressure 169/108 H 164/78 H 159/76 H Pulse Oximetry 95 99 11/04/21 05:11 11/04/21 05:15 11/04/21 05:30 Temperature Pulse Rate 84 81 79 Respiratory Rate 17 20 Blood Pressure 159/76 H 158/68 H 145/63 H Pulse Oximetry 98 99 11/04/21 05:45 11/04/21 06:00 11/04/21 06:15 Temperature Pulse Rate 85 80 79 Respiratory Rate 18 15 19 Blood Pressure 139/66 148/72 H 143/69 H Pulse Oximetry 99 98 99 11/04/21 06:30 11/04/21 06:45 11/04/21 07:00 Temperature Pulse Rate 78 86 86 Respiratory Rate 15 22 20 Blood Pressure 144/74 H 149/75 H 141/75 H Pulse Oximetry 99 98 98 11/04/21 07:37 Temperature 98.3 F Pulse Rate Respiratory Rate Blood Pressure Pulse Oximetry Oxygen Delivery Method Room Air Narrative Exam Narrative: Alert fatigued female in no acute distress Mucous membranes slightly dry. Neck supple without adenopathy. Lungs are clear. Heart regular rate and rhythm. Abdomen is soft positive bowel sounds nontender. Extremities without cyanosis clubbing edema. Neurologic exam is nonfocal. Skin with no rash. Objective Labs Result Diagrams: 11/04/21 03:45 11/04/21 06:14 Labs: Laboratory Results - last 24 hr 11/04/21 11/04/21 11/04/21 03:45 03:45 03:45 WBC 6.5 RBC 4.48 Hgb 14.1 Hct 41.7 MCV 93.2 MCH 31.5 MCHC 33.9 RDW 13.7 Plt Count 278 Neut % (Auto) 39.4 L Lymph % (Auto) 47.4 H [place] % (Auto) 8.7 Eos % (Auto) 3.7 Baso % (Auto) 0.8 Neut # (Auto) 2600 Lymph # (Auto) 3100 [place] # (Auto) 600 Eos # (Auto) 200 Baso # (Auto) 100 D-Dimer 208 Sodium 133 L Potassium 3.0 L Chloride 102 Carbon Dioxide 22 BUN 18 H Creatinine 0.75 Estimated GFR > 60.0 BUN/Creatinine Ratio 24.0 H Glucose 155 H Lactate Calcium 9.4 Magnesium Total Bilirubin 0.8 AST 25 ALT 14 Alkaline Phosphatase 74 Total Creatine Kinase 60 CK-MB (CK-2) TNP CK-MB (CK-2) Rel Index TNP Troponin I < 0.012 NT-Pro-B Natriuret Pep 150 Total Protein 7.3 Albumin 4.3 Globulin 3.0 Albumin/Globulin Ratio 1.4 Lipase 152 Procalcitonin 0.04 TSH Free T4 Urine RBC Urine WBC Ur Squamous Epith Cells Urine Bacteria Ur Culture Indicated? Ethyl Alcohol SARS-CoV-2 (PCR) 11/04/21 11/04/21 11/04/21 03:45 03:45 03:45 WBC RBC Hgb Hct MCV MCH MCHC RDW Plt Count Neut % (Auto) Lymph % (Auto) [place] % (Auto) Eos % (Auto) Baso % (Auto) Neut # (Auto) Lymph # (Auto) [place] # (Auto) Eos # (Auto) Baso # (Auto) D-Dimer Sodium Potassium Chloride Carbon Dioxide BUN Creatinine Estimated GFR BUN/Creatinine Ratio Glucose Lactate 2.6 H Calcium Magnesium Total Bilirubin AST ALT Alkaline Phosphatase Total Creatine Kinase CK-MB (CK-2) CK-MB (CK-2) Rel Index Troponin I NT-Pro-B Natriuret Pep Total Protein Albumin Globulin Albumin/Globulin Ratio Lipase Procalcitonin TSH 5.35 H Free T4 1.24 Urine RBC Urine WBC Ur Squamous Epith Cells Urine Bacteria Ur Culture Indicated? Ethyl Alcohol < 10 SARS-CoV-2 (PCR) 11/04/21 11/04/21 11/04/21 03:45 04:50 05:20 WBC RBC Hgb Hct MCV MCH MCHC RDW Plt Count Neut % (Auto) Lymph % (Auto) [place] % (Auto) Eos % (Auto) Baso % (Auto) Neut # (Auto) Lymph # (Auto) [place] # (Auto) Eos # (Auto) Baso # (Auto) D-Dimer Sodium Potassium Chloride Carbon Dioxide BUN Creatinine Estimated GFR BUN/Creatinine Ratio Glucose Lactate Calcium Magnesium 1.9 Total Bilirubin AST ALT Alkaline Phosphatase Total Creatine Kinase CK-MB (CK-2) CK-MB (CK-2) Rel Index Troponin I NT-Pro-B Natriuret Pep Total Protein Albumin Globulin Albumin/Globulin Ratio Lipase Procalcitonin TSH Free T4 Urine RBC 0-1/hpf Urine WBC None seen Ur Squamous Epith Cells 0-1 /hpf Urine Bacteria Occasional (0-1) Ur Culture Indicated? Cult not indicated Ethyl Alcohol SARS-CoV-2 (PCR) Negative 11/04/21 11/04/21 06:14 06:14 WBC RBC Hgb Hct MCV MCH MCHC RDW Plt Count Neut % (Auto) Lymph % (Auto) [place] % (Auto) Eos % (Auto) Baso % (Auto) Neut # (Auto) Lymph # (Auto) [place] # (Auto) Eos # (Auto) Baso # (Auto) D-Dimer Sodium 135 L Potassium 4.7 D Chloride 109 H Carbon Dioxide 21 L BUN 15 Creatinine 0.63 Estimated GFR > 60.0 BUN/Creatinine Ratio 23.8 H Glucose 139 H Lactate 3.6 H Calcium 8.6 Magnesium Total Bilirubin AST ALT Alkaline Phosphatase Total Creatine Kinase CK-MB (CK-2) CK-MB (CK-2) Rel Index Troponin I NT-Pro-B Natriuret Pep Total Protein Albumin Globulin Albumin/Globulin Ratio Lipase Procalcitonin TSH Free T4 Urine RBC Urine WBC Ur Squamous Epith Cells Urine Bacteria Ur Culture Indicated? Ethyl Alcohol SARS-CoV-2 (PCR) Assessment & Plan Assessment & Plan narrative: Elevated lactic acid with rigors and low-grade fever now. Etiology is unclear. No obvious source but concerning with repeated the of which all came on. Does not appear to be septic at this time. Cultures have been obtained. At this point will continue Rocephin re-evaluate in a.m. with labs follow lactic acid and procalcitonin which was normal and re-evaluate in a.m.. Maybe over to discharge at that time depending on how she responds. Hypokalemia. We replaced in the emergency room. Seems to be doing well. At this point will follow with repeat in a.m.. Dehydration. Mild. Will give fluids today see what happens over the next 24 hours. Disposition. 24 hour obsess will watch closely probable discharge tomorrow. Depending on results of studies Time Spent With Patient Critical Care time: I spent a total of [] minutes of critical care time on this patient's care today; this time is exclusive of procedural time.
[2021-11-04 09:07] LABS: Lactate 2HR (Lactic Acid Rflx) 2.1 mmol/L (0.7-2.1)
[2021-11-04] MEDS: SODIUM CHLORIDE 0.9% 1,000 ML 100 ML IV ×2 (09:15→18:51)
[2021-11-05 01:00] VITALS: BP 130/62; PULSE 72; RESP 16; TEMP 36.8; O2SAT 99
[2021-11-05] MEDS: SODIUM CHLORIDE 0.9% 1,000 ML 100 ML IV (04:31)
[2021-11-05] MEDS: cefTRIAXone 2,000 MG in SODIUM CHLORIDE 0.9% 100 ML 200 ML IV (05:13)
[2021-11-05 06:29] LABS: Add Manual Diff / Slide Review NO; Basophils Absolute Auto 0 /uL (0-100); Basophils Percent Auto 0.9 % (0-2); Eosinophils Absolute Auto 200 /uL (0-450); Eosinophils Percent Auto 3.9 % (2-4); Hematocrit 36.3 % (36-46); Hemoglobin 11.9 g/dL (12.0-16.0); Lymphocytes Absolute Auto 2000 /uL (1100-4500); Lymphocytes Percent Auto 39.3 % (25-40); Mean Corpuscular HGB Conc 32.9 % (30-36); Mean Corpuscular Volume 94.2 fL (80-100); Monocytes Absolute Auto 300 /uL (0-900); Monocytes Percent Auto 6.3 % (3-14); Neutrophils Absolute Auto 2500 /uL (1500-7000); Neutrophils Percent Auto 49.6 % (50-75); Platelet Count 223 X10^3/uL (150-400); Red Blood Cell Count 3.85 X10^6/uL (4.0-5.2)
[2021-11-05 06:35] LABS: Lactate (Lactic Acid) 0.8 mmol/L (0.7-2.1)
[2021-11-05 06:36] LABS: Blood Urea Nitrogen 11 mg/dL (7-17); Calcium 8.7 mg/dL (8.4-10.2); Carbon Dioxide 25 mmol/L (22-32); Chloride 114 mmol/L (98-107); Estimated Glomerular Filt Rate > 60.0 mL/min (>60); Glucose 91 mg/dL (80-110); HEMOLYSIS < 15 (0-50); Potassium 3.9 mmol/L (3.4-5.1); Sodium 140 mmol/L (137-145)
[2021-11-05 06:53] LABS: Procalcitonin 0.04 ng/mL (<0.5)
[2021-11-05 07:30] VITALS: BP 125/64; PULSE 64; RESP 15; TEMP 36.7; O2SAT 99
[2021-11-05 08:13] VITALS: O2SAT 99
[2021-11-05] MEDS: ACETAMINOPHEN 325 MG TABLET 650 MG PO (10:50)
--- NOTE | 2021-11-05 13:21 | P.DS_ITS ---
History of Present Illness History of Present Illness Date Patient Seen: 11/05/21 Time Patient Seen: 13:21 Date of Onset of Symptoms: 11/03/21 Chief complaint: high bp and heart skipping beats Discharge Providers Provider Date of admission: 11/04/21 07:07 Discharge Date: 11/05/21 Primary care physician: BELLA Regalado Consults: 11/04/21 11:41 Consult to Printing Table Hand Routine Comment: Discharge provider: Amada Devine MD Summary Hospital Course Discharge Diagnosis: Elevated lactic acid without evidence of sepsis Urine culture and blood culture negative but patient improving with 2 days of IV antibiotics Hypokalemia of unclear etiology, resolved Hypertension, resolved Hospital Course: Patient present to the ER with palpitations elevated blood pressure. Patient without any history of blood pressure problems. Patient was found to have elevated lactic acid with a history suggestive of infection. She was treated with IV ceftriaxone early in the morning 11/04/2021 and today 11/05/2021. She has not had any further symptoms. Her cultures were negative. Her blood pressure has been normal. Her potassium is normal after receiving IV supplementation. She will be discharged home today in stable condition to follow up with her, Eneida Villa next week on Monday or Monday and she will be discharged home on p.o. Augmentin. She will have a BMP and a CBC at follow- up. Status at Discharge Cognitive/behavioral status at discharge: oriented Functional status at discharge: independent ambulation Overall status at discharge: patient is back to baseline Exam Vital Signs (past 8 hours): - 11/05/21 07:30 11/05/21 08:13 Temperature 98.0 F Pulse Rate 64 Respiratory Rate 15 Blood Pressure 125/64 Pulse Oximetry 99 99 Oxygen Delivery Method Room Air Oxygen Flow Rate 0 Narrative Exam Narrative: Alert and oriented x3 in no apparent distress. Patient is excellent historian and appears younger than her stated age of 81 HEENT: Unremarkable Neck: Supple without adenopathy Chest: Clear to auscultation without wheezes rhonchi or crackles Cor: Regular rate and rhythm without any murmur Abdomen: Positive bowel sounds, soft, nontender Extremities: No edema, pulses intact Neurologic exam nonfocal Skin no rashes Objective Labs Result Diagrams: 11/05/21 06:15 11/05/21 06:15 Labs: Laboratory Results - last 24 hr 11/05/21 11/05/21 11/05/21 06:15 06:15 06:15 WBC 5.0 RBC 3.85 L Hgb 11.9 L Hct 36.3 MCV 94.2 MCH 31.0 MCHC 32.9 RDW 14.0 Plt Count 223 Neut % (Auto) 49.6 L Lymph % (Auto) 39.3 [place] % (Auto) 6.3 Eos % (Auto) 3.9 Baso % (Auto) 0.9 Neut # (Auto) 2500 Lymph # (Auto) 2000 [place] # (Auto) 300 Eos # (Auto) 200 Baso # (Auto) 0 Sodium 140 Potassium 3.9 Chloride 114 H Carbon Dioxide 25 BUN 11 Creatinine 0.58 Estimated GFR > 60.0 BUN/Creatinine Ratio 19.0 Glucose 91 Lactate 0.8 Calcium 8.7 Procalcitonin 0.04 PFSH Medical History Patient denies medical problems Social History household members: spouse Smoking Status: Never smoker Discharge Assessment & Plan Assessment and Plan Assessment: Hypertension, resolved Hypokalemia, resolved Rigors, resolved, no evidence of sepsis. Possible UTI even though culture negative. Patient will be sent home on p.o. Augmentin as her condition has improved with 2 days of IV ceftriaxone. Labs have returned to normal. Plan of Treatment: And DC home on Augmentin Monitor blood pressure Follow-up with PCP next Monday with BMP as well. Bring in blood pressure readings and blood pressure cuff. Routine discharge instructions. Call or come in with any concerns. Discharge Plan Discharge Plan Patient Disposition: Home Discharge orders & Medications Prescriptions: New amoxicillin-pot clavulanate [Augmentin] 500-125 mg tablet 1 tab PO BID Qty: 14 0RF Continued acetaminophen 325 mg tablet 650 mg PO QID PRN (Reason: Pain (Scale Score 4-6)) Qty: 0 0RF cholecalciferol (vitamin D3) [Vitamin D3] 2,000 UNIT capsule 4,000 iu PO QDAY Qty: 0 0RF fluticasone propionate 50 mcg/actuation spray,suspension 1 spray INTRANASAL DAILY 0RF Follow up/Referrals: Eneida Villa ARNP [Primary Care Provider] - Discharge Health Status Multidrug resistant organism: No MDRO Diet/Activity/Treatments Diet: Diet as Tolerated Discharge Data Primary Care Provider: Eneida Villa Attending Provider: Parish Villa VTE Deep Vein Thrombosis/Pulmonary Embolism Present on Admission: No
--- NOTE | 2021-11-05 13:21 | CM.IDA ---
Addendum entered by YOLIS Brownlee 11/05/21 13:38: ADD: Chart indicates patient reports drinking 3+ alcoholic drinks daily. Did not address ETOH use during this assessment. WILLIAN Original Note: Initial DCP Assessment Note Pt is an 81 yo female, resident [facility], arrives with high bp, heart skipping beats, joint pain and rigors admitted observation for medical w/u, IV abx and IV fluids PCP: Eneida Villa Payer: Micki ABBASI Reviewed chart, met w/patient to introduce role. Patient lives w/spouse who is currently on Hospice services for metastatic colon cancer. Patient explains was diagnosed 19 months ago and we were told he had 4 months to live. Patient is spouse's primary caregiver. Patient explains [employer] production staff worker is working on securing care giving help at home for patient and spouse Patient denies needs from this ORTHOTIC/PROSTHETIC PRACTITIONER today, is appreciative for the visit (patient retired from the social work field) and says she has all her needs met by their Hospice team at this time. No needs expected from DC planning team although will remain available in case this changes today. YOLIS Young Discharge Planning/Care Management CM Discharge Assessment Start: 11/05/21 13:17 Freq: Status: Active Protocol: Document 11/05/21 13:17 WILLIAN (Rec: 11/05/21 13:20 WILLIAN [id number]) Discharge Planning Assessment Assigned Automotive Instructor YOLIS Brenner DPOA/Assigned Designee Name dtbeatrice Montes (spouse Gomez on Hospice services for colon CA) Contact Information [phone] cell Advance Directives? Yes Advance Directives on File Yes History Provided By Patient Prior Living Arrangements Mobile home Household Members spouse Type of transporation used prior to Drives own vehicle admit Independent with ADL's Yes Is patient alert and oriented? Yes Caregiver for Another Yes: Spouse on Hospice, primary cg Comment Hospice SWer attempting to secure increased care for patient's spouse, patient is primary and only cg for her . Yun Mcgarry to provide transport Barriers to Discharge No Discharge Plan Home Transportation Arrangement Family Referrals Initiated None needed
--- NOTE | 2021-11-05 14:14 | PC.NURSE ---
Pt D/C at 1400. This nurse provided teaching and education for fall prevention and UTI to pt and daughter. Pt and daughter verbally acknowledge. Pt right and left IV D/C which pt tolerated well. Pt departed room on wheelchair and met daughter at the ED entrance. This nurse assisted pt transfer from wheelchair to car.
== END 2021-11-05 14:00 | disposition home or self-care (01) ==
LOC: ED 04:49 → AC 07:08
PROVIDERS: Admitting Provider Family Medicine; Emergency Provider Emergency Medicine; PCP Internal Medicine; Referring Provider Emergency Medicine; Visit Provider Family Medicine
DX: R00.2 Palpitations (principal); E86.0 Dehydration; E87.6 Hypokalemia; Z20.822 Contact with and (suspected) exposure to COVID-19
CPT/HCPCS: 36415; 71045; 80048; 80053; 80320; 81003; 81015; 82550; 83605; 83690; 83735; 83880; 84145; 84439; 84443; 84484; 85025; 85379; 87040; 87086; 87635; 93005; 94760; 96365; 96366; 96368; 96375; 99284; C9803; G0378; J0696

== ENCOUNTER 2021-11-24 11:55 | Emergency (ER) | payer OTHER, SELFPAY ==
[2021-11-04 11:07] VITALS: BMI 23.7
[2021-11-24] VITALS (9 sets, daily range): BP systolic 127–187; BP diastolic 58–98; PULSE 69–100; RESP 16; TEMP 36.9; O2SAT 96–100; BMI 22.6
[2021-11-24 12:21] LABS: Appearance Urine UA CLEAR; Bilirubin Urine UA NEGATIVE (NEGATIVE); Glucose Urine UA NEGATIVE (Negative); Ketones Urine UA NEGATIVE (NEGATIVE); Leukocyte Esterase Urine UA NEGATIVE (NEGATIVE); Nitrite Urine UA NEGATIVE (Negative); Occult Blood Urine UA TRACE-LYSED (Negative); Protein Urine UA NEGATIVE (Negative); Specific Gravity Urine UA <=1.005 (1.000-1.035); Urobilinogen Urine UA 0.2 E.U./dL (0.2)
[2021-11-24 12:33] LABS: Color Urine UA STRAW; pH Urine UA 6.5 (4.5-8.0)
[2021-11-24 12:34] LABS: Bacteria Urine Occasional (0-1); Culture Indicated Urine Cult Not Indicated; RBC Urine 0-1/HPF (0-5/HPF); Squamous Epithelial Cell Urine 1-5 /HPF (0-5/HPF); WBC Urine None Seen (0-5/HPF)
--- NOTE | 2021-11-24 12:34 | ED.FEMALEGU ---
HPI - Female Genitourinary <Marisa Ku, [facility] - Last Filed: 11/24/21 14:06> General Chief complaint: Weakness Stated complaint: admitted for UTI 11/04 still not feeling well Time Seen by Provider: 11/24/21 12:03 Source: patient Mode of arrival: Ambulatory History of Present Illness HPI Narrative: This is an 81-year-old female with history of urosepsis 11/04/2021 who presents to the emergency department today complaining of urinary frequency, feeling fatigued, and having a weaker urine stream than usual over the last 3 days. She denies any nausea, vomiting, fever, dizziness, abdominal pain, back pain, weakness, odor to her urine, vaginal discharge, headache, mental status changes, or other symptom. She states her only symptoms are feeling tired, and having urinary frequency. Her primary care provider is Dr. Eneida Villa. She denies any chest pain, shortness of breath, flank pain, or muscle weakness. She denies having any pain at all. She states that she has been staying hydrated and drinking plenty of water. Related Data Home Medications Medication Instructions Recorded Confirmed acetaminophen 325 mg tablet 650 mg PO QID PRN #0 02/22/17 11/04/21 cholecalciferol (vitamin D3) 50 4,000 iu PO QDAY #0 02/22/17 11/04/21 mcg (2,000 unit) capsule (Vitamin D3) fluticasone propionate 50 1 spray INTRANASAL DAILY 09/12/20 11/04/21 mcg/actuation nasal spray,suspension Previous Rx's Medication Instructions Recorded amoxicillin 500 mg-potassium 1 tab PO BID #14 tab 11/05/21 clavulanate 125 mg tablet (Augmentin) phenazopyridine 100 mg tablet 100 mg PO TID PRN #7 tab 11/24/21 (Pyridium) sulfamethoxazole 800 1 tab PO BID 5 Days #10 tab 11/24/21 mg-trimethoprim 160 mg tablet (Bactrim DS) Allergies Allergy/AdvReac Type Severity Reaction Status Date / Time codeine Allergy Mild N/V Verified 11/24/21 12:09 hydrocodone [HYDROCODONE] Allergy Mild N/V Verified 11/24/21 12:09 oxycodone [OXYCODONE] Allergy Mild N/V Verified 11/24/21 12:09 propoxyphene [From DARVON] Allergy Mild N/V Verified 11/24/21 12:09 bupivacaine Allergy Unknown Verified 11/24/21 12:09 NARCOTIC ANTAGONIST OBSOLETE Allergy Unknown UNK Uncoded 11/24/21 12:09 Review of Systems <BELLA Romero - Last Filed: 11/24/21 14:06> Review of Systems Narrative: General: denies fever, chills, malaise, sweats, endorses having fatigue Head/Neck: denies headache, neck pain, dizziness Eyes: denies visual changes, eye pain Cardio: denies chest pain, palpitations, edema Respiratory: denies dyspnea, cough, orthopnea GI: denies abdominal pain, nausea, vomiting, or diarrhea : denies dysuria, hematuria, urinary retention, incontinence, endorses having urinary frequency and urgency MSK: denies joint pain, muscle weakness Skin: denies rash, itching, skin lesions or other Neuro: denies numbness, tingling Patient History <BELLA Romero - Last Filed: 11/24/21 14:06> Medical History Patient denies medical problems alcohol intake frequency: 0-2 drinks per day Alcohol type: beer Substance Use Type: does not use Exam <BELLA Romero - Last Filed: 11/24/21 14:06> Narrative Exam Narrative: Independently reviewed vitals signs and nursing notes. General: cooperative, comfortable, in no acute distress, well developed and well groomed Head: atraumatic, symmetrical facial expressions Neck: supple, atraumatic, without lymphadenopathy. Eyes: pupils equal round and reactive, EOMI, conjunctiva normal, no nystagmus Nose: nares patent, no rhinorrhea Mouth/Throat: uvula midline, moist mucus membranes Cardiovascular: regular rate and rhythm, no peripheral edema, warm extremities Respiratory: normal effort, able to speak in complete sentences, no audible wheezing, stridor, or rales. No retractions or tachypnea. GI: abdomen soft, nontender to palpation, nondistended, no masses, no exquisite tenderness with exam, without guarding or rebound. No CVA tenderness to palpation MSK: moves all extremities, ambulatory w/steady gait, neurovascularly intact, no weakness Skin: brisk capillary refill, no rash, no erythema Neuro: normal speech and cognition, A&O x3, normal tone Psych: mental status is grossly normal, congruent mood, normal affect, pleasant and cooperative Initial Vital Signs Initial Vital Signs: Vital Signs Temperature 98.5 F 11/24/21 11:55 Pulse Rate 100 H 11/24/21 11:55 Respiratory Rate 16 11/24/21 11:55 Blood Pressure 187/98 H 11/24/21 11:55 Pulse Oximetry 99 11/24/21 11:55 <Nathalie Alvarado DO - Last Filed: 11/25/21 07:31> Initial Vital Signs Initial Vital Signs: Vital Signs Temperature 98.5 F 11/24/21 11:55 Pulse Rate 100 H 11/24/21 11:55 Respiratory Rate 16 11/24/21 11:55 Blood Pressure 187/98 H 11/24/21 11:55 Pulse Oximetry 99 11/24/21 11:55 Course <BELLA Romero - Last Filed: 11/24/21 14:06> Orders Ordered: Discontinued Medications Trimethoprim/Sulfamethoxazole (Trimeth/Sulfa 160/800 (Ds) Tablet) 1 tab PO NOW ONE Stop: 11/24/21 13:58 Last Admin: 11/24/21 14:07 Dose: 1 tab Documented by: BTONER Vital Signs Vital signs: Vital Signs - 8 hr 11/24/21 11:55 11/24/21 12:05 11/24/21 12:06 Temperature 98.5 F Pulse Rate 100 H Respiratory Rate 16 Blood Pressure 187/98 H 187/98 H Pulse Oximetry 99 99 11/24/21 12:13 11/24/21 12:30 11/24/21 13:16 Temperature Pulse Rate 92 H 83 79 Respiratory Rate Blood Pressure 176/76 H 154/67 H Pulse Oximetry 100 99 99 <Nathalie Alvarado DO - Last Filed: 11/25/21 07:31> Orders Ordered: Discontinued Medications Trimethoprim/Sulfamethoxazole (Trimeth/Sulfa 160/800 (Ds) Tablet) 1 tab PO NOW ONE Stop: 11/24/21 13:58 Last Admin: 11/24/21 14:07 Dose: 1 tab Documented by: BTONER Vital Signs Vital signs: Vital Signs - 8 hr 11/24/21 11:55 11/24/21 12:05 11/24/21 12:06 Temperature 98.5 F Pulse Rate 100 H Respiratory Rate 16 Blood Pressure 187/98 H 187/98 H Pulse Oximetry 99 99 11/24/21 12:13 11/24/21 12:30 11/24/21 13:16 Temperature Pulse Rate 92 H 83 79 Respiratory Rate Blood Pressure 176/76 H 154/67 H Pulse Oximetry 100 99 99 MDM - Female Genitourinary <BELLA Romero - Last Filed: 11/24/21 14:06> Lab Data Result diagrams: 11/24/21 12:37 11/24/21 12:37 Labs: Lab Results 11/24/21 11/24/21 11/24/21 Range/Units 12:00 12:37 12:37 WBC 4.4 L (4.5-11.0) X10^3/uL RBC 4.27 (4.0-5.2) X10^6/uL Hgb 13.4 (12.0-16.0) g/dL Hct 39.4 (36-46) % MCV 92.3 (80-100) fL MCH 31.4 (26-34) PG MCHC 34.0 (30-36) % RDW 13.0 (11.6-14.8) % Plt Count 296 (150-400) X10^3/uL Neut % (Auto) 56.9 (50-75) % Lymph % (Auto) 33.0 (25-40) % [place] % (Auto) 6.7 (3-14) % Eos % (Auto) 2.1 (2-4) % Baso % (Auto) 1.3 (0-2) % Neut # (Auto) 2500 (8990-3026) /uL Lymph # (Auto) 1500 (8593-2482) /uL [place] # (Auto) 300 (0-900) /uL Eos # (Auto) 100 (0-450) /uL Baso # (Auto) 100 (0-100) /uL Sodium 139 (137-145) mmol/L Potassium 4.0 (3.4-5.1) mmol/L Chloride 105 (98-107) mmol/L Carbon Dioxide 27 (22-32) mmol/L BUN 10 (7-17) mg/dL Creatinine 0.73 (0.52-1.04) mg/dL Estimated GFR > 60 (>60) mL/min BUN/Creatinine Ratio 13.7 (6-22) Glucose 110 (80-110) mg/dL Lactate (0.7-2.1) mmol/L Calcium 9.4 (8.4-10.2) mg/dL Total Bilirubin 0.5 (0.2-1.3) mg/dL AST 26 (14-36) IU/L ALT 16 (<35) IU/L Alkaline Phosphatase 69 (38-126) U/L Total Protein 7.2 (6.3-8.2) g/dL Albumin 4.3 (3.5-5.0) g/dL Globulin 2.9 (1.7-4.1) g/dL Albumin/Globulin Ratio 1.5 (1.0-2.8) Urine Color Straw Urine Appearance Clear Urine pH 6.5 (4.5-8.0) Ur Specific [place] <=1.005 (1.000-1.035) Urine Protein Negative (Negative) Urine Glucose (UA) Negative (Negative) g/dL Urine Ketones Negative (NEGATIVE) Urine Occult Blood Trace-lysed (Negative) Urine Nitrate Negative (Negative) Urine Bilirubin Negative (NEGATIVE) Urine Urobilinogen 0.2 (0.2) E.U./dL Ur Leukocyte Esterase Negative (NEGATIVE) Urine RBC 0-1/hpf (0-5/HPF) Urine WBC None seen (0-5/HPF) Ur Squamous Epith Cells 1-5 /hpf (0-5/HPF) Urine Bacteria Occasional (0-1) (None) Ur Culture Indicated? Cult not indicated 11/24/21 Range/Units 12:37 WBC (4.5-11.0) X10^3/uL RBC (4.0-5.2) X10^6/uL Hgb (12.0-16.0) g/dL Hct (36-46) % MCV (80-100) fL MCH (26-34) PG MCHC (30-36) % RDW (11.6-14.8) % Plt Count (150-400) X10^3/uL Neut % (Auto) (50-75) % Lymph % (Auto) (25-40) % [place] % (Auto) (3-14) % Eos % (Auto) (2-4) % Baso % (Auto) (0-2) % Neut # (Auto) (9887-5922) /uL Lymph # (Auto) (3849-3279) /uL [place] # (Auto) (0-900) /uL Eos # (Auto) (0-450) /uL Baso # (Auto) (0-100) /uL Sodium (137-145) mmol/L Potassium (3.4-5.1) mmol/L Chloride (98-107) mmol/L Carbon Dioxide (22-32) mmol/L BUN (7-17) mg/dL Creatinine (0.52-1.04) mg/dL Estimated GFR (>60) mL/min BUN/Creatinine Ratio (6-22) Glucose (80-110) mg/dL Lactate 1.1 (0.7-2.1) mmol/L Calcium (8.4-10.2) mg/dL Total Bilirubin (0.2-1.3) mg/dL AST (14-36) IU/L ALT (<35) IU/L Alkaline Phosphatase (38-126) U/L Total Protein (6.3-8.2) g/dL Albumin (3.5-5.0) g/dL Globulin (1.7-4.1) g/dL Albumin/Globulin Ratio (1.0-2.8) Urine Color Urine Appearance Urine pH (4.5-8.0) Ur Specific [place] (1.000-1.035) Urine Protein (Negative) Urine Glucose (UA) (Negative) g/dL Urine Ketones (NEGATIVE) Urine Occult Blood (Negative) Urine Nitrate (Negative) Urine Bilirubin (NEGATIVE) Urine Urobilinogen (0.2) E.U./dL Ur Leukocyte Esterase (NEGATIVE) Urine RBC (0-5/HPF) Urine WBC (0-5/HPF) Ur Squamous Epith Cells (0-5/HPF) Urine Bacteria (None) Ur Culture Indicated? MDM Narrative Medical decision making narrative: This is 81-year-old female with history of urosepsis on 11/04/2021 with admission, presents to the emergency department complaining of urinary frequency, and fatigue for the last 3 days. Denies any dysuria, back pain, abdominal pain, fever, lightheadedness, dizziness, nausea or vomiting. Initially she was tachycardic, likely due to anxiety, she calmed down when we were talking after about 5 minutes and had an unremarkable exam without any tachycardia, hypotension, she is afebrile. No signs of sepsis, UA shows a trace of blood, it was sent for culture, CT KUB was obtained as patient states she has a history of kidney stones. Lab work overall is unremarkable, no electrolyte abnormality no leukocytosis, procalcitonin is negative, in follow-up on urine culture. 0.73, GFR over 60, lactate 1.1, no elevation in LFTs. CT KUB is shows no renal, ureteral, or bladder calculi, no obstruction. No hydronephrosis. Differential diagnosis considered renal calculi, UTI, pyelonephritis, ureter or bladder calculi, hydronephrosis, chronic UTI. Patient was given strict return precautions, she is prescribed Bactrim for a 5 day course, 1st dose given here, she understands to follow-up with primary care or return here with strict return precautions. Patient is appropriate and amenable to discharge home. Vital signs are stable on repeat examination is unremarkable. Patient has been informed of results. Patient has been given strict return to ER precautions for any new or worsening symptoms. Patient understands to follow up closely with outpatient providers as instructed. Patient understands plan and agrees to discharge home. All questions and concerns answered at this time. <Nathalie Alvarado, DO - Last Filed: 11/25/21 07:31> Lab Data Labs: Lab Results 11/24/21 11/24/21 11/24/21 Range/Units 12:00 12:37 12:37 WBC 4.4 L (4.5-11.0) X10^3/uL RBC 4.27 (4.0-5.2) X10^6/uL Hgb 13.4 (12.0-16.0) g/dL Hct 39.4 (36-46) % MCV 92.3 (80-100) fL MCH 31.4 (26-34) PG MCHC 34.0 (30-36) % RDW 13.0 (11.6-14.8) % Plt Count 296 (150-400) X10^3/uL Neut % (Auto) 56.9 (50-75) % Lymph % (Auto) 33.0 (25-40) % [place] % (Auto) 6.7 (3-14) % Eos % (Auto) 2.1 (2-4) % Baso % (Auto) 1.3 (0-2) % Neut # (Auto) 2500 (2090-2481) /uL Lymph # (Auto) 1500 (2562-3204) /uL [place] # (Auto) 300 (0-900) /uL Eos # (Auto) 100 (0-450) /uL Baso # (Auto) 100 (0-100) /uL Sodium 139 (137-145) mmol/L Potassium 4.0 (3.4-5.1) mmol/L Chloride 105 (98-107) mmol/L Carbon Dioxide 27 (22-32) mmol/L BUN 10 (7-17) mg/dL Creatinine 0.73 (0.52-1.04) mg/dL Estimated GFR > 60 (>60) mL/min BUN/Creatinine Ratio 13.7 (6-22) Glucose 110 (80-110) mg/dL Lactate (0.7-2.1) mmol/L Calcium 9.4 (8.4-10.2) mg/dL Total Bilirubin 0.5 (0.2-1.3) mg/dL AST 26 (14-36) IU/L ALT 16 (<35) IU/L Alkaline Phosphatase 69 (38-126) U/L Total Protein 7.2 (6.3-8.2) g/dL Albumin 4.3 (3.5-5.0) g/dL Globulin 2.9 (1.7-4.1) g/dL Albumin/Globulin Ratio 1.5 (1.0-2.8) Urine Color Straw Urine Appearance Clear Urine pH 6.5 (4.5-8.0) Ur Specific [place] <=1.005 (1.000-1.035) Urine Protein Negative (Negative) Urine Glucose (UA) Negative (Negative) g/dL Urine Ketones Negative (NEGATIVE) Urine Occult Blood Trace-lysed (Negative) Urine Nitrate Negative (Negative) Urine Bilirubin Negative (NEGATIVE) Urine Urobilinogen 0.2 (0.2) E.U./dL Ur Leukocyte Esterase Negative (NEGATIVE) Urine RBC 0-1/hpf (0-5/HPF) Urine WBC None seen (0-5/HPF) Ur Squamous Epith Cells 1-5 /hpf (0-5/HPF) Urine Bacteria Occasional (0-1) (None) Ur Culture Indicated? Cult not indicated 11/24/21 Range/Units 12:37 WBC (4.5-11.0) X10^3/uL RBC (4.0-5.2) X10^6/uL Hgb (12.0-16.0) g/dL Hct (36-46) % MCV (80-100) fL MCH (26-34) PG MCHC (30-36) % RDW (11.6-14.8) % Plt Count (150-400) X10^3/uL Neut % (Auto) (50-75) % Lymph % (Auto) (25-40) % [place] % (Auto) (3-14) % Eos % (Auto) (2-4) % Baso % (Auto) (0-2) % Neut # (Auto) (8949-5883) /uL Lymph # (Auto) (2319-6255) /uL [place] # (Auto) (0-900) /uL Eos # (Auto) (0-450) /uL Baso # (Auto) (0-100) /uL Sodium (137-145) mmol/L Potassium (3.4-5.1) mmol/L Chloride (98-107) mmol/L Carbon Dioxide (22-32) mmol/L BUN (7-17) mg/dL Creatinine (0.52-1.04) mg/dL Estimated GFR (>60) mL/min BUN/Creatinine Ratio (6-22) Glucose (80-110) mg/dL Lactate 1.1 (0.7-2.1) mmol/L Calcium (8.4-10.2) mg/dL Total Bilirubin (0.2-1.3) mg/dL AST (14-36) IU/L ALT (<35) IU/L Alkaline Phosphatase (38-126) U/L Total Protein (6.3-8.2) g/dL Albumin (3.5-5.0) g/dL Globulin (1.7-4.1) g/dL Albumin/Globulin Ratio (1.0-2.8) Urine Color Urine Appearance Urine pH (4.5-8.0) Ur Specific [place] (1.000-1.035) Urine Protein (Negative) Urine Glucose (UA) (Negative) g/dL Urine Ketones (NEGATIVE) Urine Occult Blood (Negative) Urine Nitrate (Negative) Urine Bilirubin (NEGATIVE) Urine Urobilinogen (0.2) E.U./dL Ur Leukocyte Esterase (NEGATIVE) Urine RBC (0-5/HPF) Urine WBC (0-5/HPF) Ur Squamous Epith Cells (0-5/HPF) Urine Bacteria (None) Ur Culture Indicated? Discharge Plan Departure Patient Disposition: Home Clinical Impression: Acute UTI Instructions: Urinary Tract Infection Activity Restrictions/Additional Instructions: *You have been diagnosed with a urinary tract infection without any signs of kidney stone, kidney infection, or any other confounding symptom. Thank you for coming into the emergency department, please take this antibiotic for the next 5 days, and follow-up with your primary care provider as needed. If you have any worsening, develop nausea, vomiting, fever, weakness, or any other concerning symptom, please return to the emergency department. Thank you for trusting us with your care. Please remember to stay hydrated, hope you feel better soon. *What to do: *Please continue to take your regular medications as directed. [x ] New medication prescriptions sent to your pharmacy: [ [facility]] [ ] New medication written as a paper prescription [ ] No new medications given *Please follow up with your primary care provider in 2-3 days, call for an appointment. Let them know you were seen in the Emergency Department and that we asked that you be seen for follow-up. We will electronically transmit a record of today's note if your PCP is in our system *If you do not have a primary care provider please contact [phone] to establish care with one of the [facility] primary care providers. *Return to Emergency Department if you should have any new, worsening or concerning symptoms, such as [fever greater than 101F, chills, worsening pain, persistent vomiting or other bothersome symptoms] Prescriptions: New sulfamethoxazole-trimethoprim [Bactrim DS] 800-160 mg tablet 1 tab PO BID 5 Days Qty: 10 0RF phenazopyridine [Pyridium] 100 mg tablet 100 mg PO TID PRN (Reason: urinary frequency) Qty: 7 0RF No Action acetaminophen 325 mg tablet 650 mg PO QID PRN (Reason: Pain (Scale Score 4-6)) Qty: 0 0RF cholecalciferol (vitamin D3) [Vitamin D3] 2,000 UNIT capsule 4,000 iu PO QDAY Qty: 0 0RF fluticasone propionate 50 mcg/actuation spray,suspension 1 spray INTRANASAL DAILY 0RF amoxicillin-pot clavulanate [Augmentin] 500-125 mg tablet 1 tab PO BID Qty: 14 0RF Referrals: Eneida Villa ARNP [Primary Care Provider] - <Nathalie Alvarado DO - Last Filed: 11/25/21 07:31> Cosign ED Attending Otiliaature Attestation: I was immediately available in the department for consultation. Documentation has been reviewed. I agree with assessment and plan.
--- NOTE | 2021-11-24 12:39 | DI.CT.S_ITS ---
PROCEDURE: CT KIDNEY URETER BLADDER (KUB) INDICATIONS: hx kidney stones, +blood in urine, +urinary frequency/urgenc TECHNIQUE: Axial sections were acquired from the lung bases to the pubic symphysis. Coronal and sagittal reformats were performed. For radiation dose reduction, the following was used: automated exposure control, adjustment of mA and/or kV according to patient size. COMPARISON: None. FINDINGS: Image quality: Excellent. Lung bases: Unremarkable. Heart: No significant findings. URINARY: Right Kidney: No stones or hydronephrosis. Mild renal atrophy. Right Ureter: No hydroureter. Left Kidney: No stones or hydronephrosis. Mild renal atrophy. Left Ureter: No hydroureter. Bladder: Normal wall thickness. No stones. ABDOMEN: Liver: Unremarkable. Gallbladder: Unremarkable. Biliary ducts: Unremarkable. Pancreas: Unremarkable. Spleen: Unremarkable. Adrenal Glands: Unremarkable. Stomach and Bowel: Stomach, small bowel loops, and colon are unremarkable. Peritoneum: No abnormal intraperitoneal fluid. No free air. Ventral Wall: No hernia. Abdominal Nodes: No enlarged retroperitoneal or mesenteric lymph nodes. Vessels: Aorta and inferior vena cava are normal in size. PELVIS: Pelvic Organs: Unremarkable. Pelvic Nodes: Unremarkable. Miscellaneous: Small fat containing bilateral inguinal hernias are present. Bones: Unremarkable. IMPRESSION: No renal, ureteral or bladder calculi. No obstruction. Dictated by: Mame Cadena M.D. on 11/24/2021 at 13:25 Approved by: Mame Cadena M.D. on 11/24/2021 at 13:27
[2021-11-24 12:50] LABS: Add Manual Diff / Slide Review NO; Basophils Absolute Auto 100 /uL (0-100); Basophils Percent Auto 1.3 % (0-2); Eosinophils Absolute Auto 100 /uL (0-450); Eosinophils Percent Auto 2.1 % (2-4); Hematocrit 39.4 % (36-46); Hemoglobin 13.4 g/dL (12.0-16.0); Lymphocytes Absolute Auto 1500 /uL (1100-4500); Mean Corpuscular Hemoglobin 31.4 PG (26-34); Mean Corpuscular Volume 92.3 fL (80-100); Monocytes Absolute Auto 300 /uL (0-900); Monocytes Percent Auto 6.7 % (3-14); Neutrophils Absolute Auto 2500 /uL (1500-7000); Neutrophils Percent Auto 56.9 % (50-75); Platelet Count 296 X10^3/uL (150-400); Red Blood Cell Count 4.27 X10^6/uL (4.0-5.2); White Blood Cell Count 4.4 X10^3/uL (4.5-11.0)
[2021-11-24 13:04] LABS: Lactate (Lactic Acid) 1.1 mmol/L (0.7-2.1)
[2021-11-24 13:06] LABS: Alanine Aminotransferase 16 IU/L (<35); Albumin 4.3 g/dL (3.5-5.0); Albumin Globulin Ratio 1.5 (1.0-2.8); Alkaline Phosphatase 69 U/L (38-126); Aspartate Aminotransferase 26 IU/L (14-36); BUN Creatinine Ratio 13.7 (6-22); Bilirubin Total 0.5 mg/dL (0.2-1.3); Blood Urea Nitrogen 10 mg/dL (7-17); Calcium 9.4 mg/dL (8.4-10.2); Carbon Dioxide 27 mmol/L (22-32); Chloride 105 mmol/L (98-107); Estimated Glomerular Filt Rate > 60 mL/min (>60); Globulin 2.9 g/dL (1.7-4.1); Glucose 110 mg/dL (80-110); HEMOLYSIS < 15 (0-50); Sodium 139 mmol/L (137-145); Total Protein 7.2 g/dL (6.3-8.2)
[2021-11-24] MEDS: TRIMETH/SULFA 160/800 (DS) TABLET 1 TAB PO (14:07)
== END 2021-11-24 14:21 | disposition home or self-care (01) ==
PROVIDERS: Emergency Provider Nurse Practitioner Critical Care Medicine; PCP Internal Medicine
DX: N39.0 Urinary tract infection, site not specified (principal)
CPT/HCPCS: 36415; 74176; 80053; 81001; 83605; 85025; 87086; 99283; 99284

== ENCOUNTER → 2022-02-15 14:41 | Outpatient (CLI) | payer OTHER, SELFPAY ==
[2021-11-04 11:07] VITALS: BMI 23.7
--- NOTE | 2022-02-15 | DI.RAD.S_ITS ---
PROCEDURE: XR ANKLE RT MIN 3V INDICATIONS: RIGHT ANKLE PAIN TECHNIQUE: 3 views of the ankle were acquired. COMPARISON: None. FINDINGS: Bones: There is a displaced fracture of the distal right lateral malleolus. No other fracture or dislocation. Joint spaces are preserved. Soft tissues: There is a small tibiotalar joint effusion and lateral malleolar soft tissue swelling. IMPRESSION: Right distal fibular fracture with joint effusion and overlying soft tissue swelling. Dictated by: Talya Dave M.D. on 02/15/2022 at 16:41 Approved by: Talya Dave M.D. on 02/15/2022 at 16:42
== END ==
PROVIDERS: PCP Internal Medicine; Referring Provider Internal Medicine; Visit Provider Internal Medicine
DX: S82.831A Other fracture of upper and lower end of right fibula, initial encounter for closed fracture (principal)
CPT/HCPCS: 73610

== ENCOUNTER 2022-05-11 13:01 | Emergency (ER) | payer OTHER, SELFPAY ==
[2021-11-04 11:07] VITALS: BMI 23.7
[2022-05-11] VITALS (8 sets, daily range): BP systolic 137–207; BP diastolic 64–94; PULSE 75–105; RESP 19–22; TEMP 36.1–37.6; O2SAT 96–100
--- NOTE | 2022-05-11 13:47 | DI.RAD.S_ITS ---
PROCEDURE: XR CHEST 1V INDICATIONS: suspected sepsis TECHNIQUE: One view of the chest was acquired. COMPARISON: [facility], CR, XR CHEST 1V, 11/04/2021, 3:49. FINDINGS: Surgical changes and devices: None. Lungs and pleura: Lungs are clear. No pleural effusions or pneumothorax. Mediastinum: Mediastinal contours appear normal. Heart size is normal. Bones and chest wall: No suspicious bony lesions. Overlying soft tissues appear unremarkable. IMPRESSION: No acute cardiopulmonary pathology. Dictated by: Bebo Kat M.D. on 05/11/2022 at 14:52 Approved by: Bebo Kat M.D. on 05/11/2022 at 14:54
[2022-05-11 14:22] LABS: Add Manual Diff / Slide Review NO; Basophils Absolute Auto 0 /uL (0-100); Basophils Percent Auto 0.6 % (0-2); Eosinophils Absolute Auto 0 /uL (0-450); Eosinophils Percent Auto 0.5 % (2-4); Hematocrit 41.3 % (36-46); Hemoglobin 13.7 g/dL (12.0-16.0); Lymphocytes Absolute Auto 1400 /uL (1100-4500); Lymphocytes Percent Auto 24.3 % (25-40); Mean Corpuscular HGB Conc 33.2 % (30-36); Mean Corpuscular Hemoglobin 31.7 PG (26-34); Mean Corpuscular Volume 95.4 fL (80-100); Monocytes Absolute Auto 300 /uL (0-900); Monocytes Percent Auto 5.6 % (3-14); Neutrophils Absolute Auto 3900 /uL (1500-7000); Platelet Count 273 X10^3/uL (150-400); Red Blood Cell Count 4.33 X10^6/uL (4.0-5.2); Red Cell Distribution Width 13.4 % (11.6-14.8); White Blood Cell Count 5.7 X10^3/uL (4.5-11.0)
[2022-05-11 14:31] LABS: Lactate (Lactic Acid) 2.9 mmol/L (0.7-2.1)
[2022-05-11 14:33] LABS: Alanine Aminotransferase 17 IU/L (<35); Albumin 4.5 g/dL (3.5-5.0); Albumin Globulin Ratio 1.6 (1.0-2.8); Alkaline Phosphatase 82 U/L (38-126); Aspartate Aminotransferase 28 IU/L (14-36); BUN Creatinine Ratio 15.3 (6-22); Bilirubin Total 0.8 mg/dL (0.2-1.3); Blood Urea Nitrogen 11 mg/dL (7-17); Calcium 9.3 mg/dL (8.4-10.2); Carbon Dioxide 18 mmol/L (22-32); Chloride 98 mmol/L (98-107); Estimated Glomerular Filt Rate > 60 mL/min (>60); Globulin 2.9 g/dL (1.7-4.1); Glucose 134 mg/dL (80-110); HEMOLYSIS < 15 (0-50); Lipase 104 U/L (23-300); Potassium 3.3 mmol/L (3.4-5.1); Sodium 131 mmol/L (137-145); Total Protein 7.4 g/dL (6.3-8.2)
[2022-05-11 14:48] LABS: Procalcitonin 0.03 ng/mL (<0.5)
[2022-05-11] MEDS: SODIUM CHLORIDE 0.9% 1,000 ML 1000 ML IV (16:00)
[2022-05-11 16:09] LABS: Reflexed Lactate in 2 Hours Y
--- NOTE | 2022-05-11 16:38 | ED_ITS ---
HPI - General Adult <Myra Gutierrez, - Last Filed: 05/24/22 19:58> General Chief complaint: Fever Stated complaint: Extremely high blood pressure Time Seen by Provider: 05/11/22 16:29 Source: patient and family Mode of arrival: Ambulatory Limitations: no limitations History of Present Illness HPI narrative: This is an 81-year-old female who presents with sensation of fast heartbeat and skipped beats starting about 11:00 a.m. today. Patient states she still occasionally has that sensation. She denies any chest pain or pressure. No fevers or chills but states she was shaking when she 1st arrived uncontrollably. Patient was alert no syncope or passing out, she denies any cough, cold or congestion, no nausea or vomiting. She denies abdominal back or flank pain. She noticed some frequency and off color urine. She is had normal bowel movements with no constipation diarrhea or black or bloody stools. Related Data Home Medications Medication Instructions Recorded Confirmed acetaminophen 325 mg tablet 650 mg PO QID PRN Pain (Scale 02/22/17 11/04/21 Score 4-6) ##0 cholecalciferol (vitamin D3) 50 4,000 iu PO QDAY ##0 02/22/17 11/04/21 mcg (2,000 unit) capsule (Vitamin D3) fluticasone propionate 50 1 spray intranasal DAILY 09/12/20 11/04/21 mcg/actuation nasal spray,suspension Previous Rx's Medication Instructions Recorded amoxicillin 500 mg-potassium 1 tab PO BID #14 tabs 11/05/21 clavulanate 125 mg tablet (Augmentin) phenazopyridine 100 mg tablet 100 mg PO TID PRN urinary 11/24/21 (Pyridium) frequency 6 doses #7 tabs Allergies Allergy/AdvReac Type Severity Reaction Status Date / Time codeine Allergy Mild N/V Verified 11/24/21 12:09 hydrocodone [HYDROCODONE] Allergy Mild N/V Verified 11/24/21 12:09 oxycodone [OXYCODONE] Allergy Mild N/V Verified 11/24/21 12:09 propoxyphene [From DARVON] Allergy Mild N/V Verified 11/24/21 12:09 bupivacaine Allergy Unknown Verified 11/24/21 12:09 NARCOTIC ANTAGONIST OBSOLETE Allergy Unknown UNK Uncoded 11/24/21 12:09 Review of Systems <Myra Gutierrez DO - Last Filed: 05/24/22 19:58> Review of Systems ROS Unobtainable: All systems reviewed & are unremarkable except as noted in HPI and below Patient History <Myra Gutierrez DO - Last Filed: 05/24/22 19:58> Medical History Patient denies medical problems Social History household members: spouse Smoking Status: Never smoker Smoking Status: Never smoker alcohol intake frequency: 0-2 drinks per day Alcohol type: beer Substance Use Type: does not use Exam <Myra Gutierrez DO - Last Filed: 05/24/22 19:58> Narrative Exam Narrative: GENERAL: Alert and oriented x three, well-nourished female in mild distress HEENT: Head normocephalic, atraumatic, EOMI, pupils reactive, face symmetric, moist mucous membranes NECK: Supple, full range of motion CARDIOVASCULAR: Slightly tachycardic 90s to 100 range but Regular rate and rhythm without murmurs, rubs or gallops. No JVD. No swelling bilateral lower extremities RESPIRATORY: Breath sounds equal bilaterally, no wheezes rales or rhonchi. ABDOMEN: Soft, mild bilateral lower quadrant pain. Normoactive bowel sounds all 4 quadrants. No guarding or rebound, rigidity, no mass, nondistended. : No CVA tenderness EXTREMITIES: Normal range of motion, no clubbing or edema. Neurovascularly intact NEUROLOGICAL: Cranial nerves II through XII grossly intact. Moving all extremities SKIN: Warm, dry, no petechiae, no rashes or lesions. Initial Vital Signs Initial Vital Signs: Vital Signs Temperature 96.9 F L 05/11/22 13:25 Pulse Rate 105 H 05/11/22 13:25 Respiratory Rate 22 05/11/22 13:25 Blood Pressure 207/94 H 05/11/22 13:25 Pulse Oximetry 99 05/11/22 13:25 Oxygen Delivery Method 05/11/22 13:25 <Jarrell Ramirez DO - Last Filed: 05/11/22 23:20> Initial Vital Signs Initial Vital Signs: Vital Signs Temperature 96.9 F L 05/11/22 13:25 Pulse Rate 105 H 05/11/22 13:25 Respiratory Rate 22 05/11/22 13:25 Blood Pressure 207/94 H 05/11/22 13:25 Pulse Oximetry 99 05/11/22 13:25 Oxygen Delivery Method 05/11/22 13:25 Course <Myra Gutierrez, - Last Filed: 05/24/22 19:58> Orders Ordered: Discontinued Medications Sodium Chloride (Normal Saline 0.9%) 1,000 mls @ 1,000 mls/hr IV BOLUS ONE Stop: 05/11/22 14:46 Last Infusion: 05/11/22 18:04 Dose: 0 mls/hr Documented By: Admin: 05/11/22 16:00 Dose: 1,000 mls/hr Documented By: NR Vital Signs Vital signs: Vital Signs - 8 hr 05/11/22 16:02 05/11/22 16:51 05/11/22 18:20 Temperature 99.6 F Pulse Rate 75 Respiratory Rate 20 Blood Pressure 148/72 H Pulse Oximetry 100 98 Oxygen Delivery Method Room Air 05/11/22 18:22 05/11/22 18:22 05/11/22 18:30 Temperature Pulse Rate 90 90 Respiratory Rate 19 22 Blood Pressure 151/70 H Pulse Oximetry 99 99 Oxygen Delivery Method 05/11/22 22:39 Temperature Pulse Rate 91 H Respiratory Rate 22 Blood Pressure 137/64 Pulse Oximetry 96 Oxygen Delivery Method Room Air <Jarrell Ramirez DO - Last Filed: 05/11/22 23:20> Orders Ordered: Discontinued Medications Sodium Chloride (Normal Saline 0.9%) 1,000 mls @ 1,000 mls/hr IV BOLUS ONE Stop: 05/11/22 14:46 Last Infusion: 05/11/22 18:04 Dose: 0 mls/hr Documented By: Admin: 05/11/22 16:00 Dose: 1,000 mls/hr Documented By: NR Reevaluation(s) Reevaluation #1: Patient continues to be asymptomatic. She denies any headache, blurry vision chest pain or shortness of breath. She is had no palpitations and vital signs have been stable for quite some time. Vital Signs Vital signs: Vital Signs - 8 hr 05/11/22 16:02 05/11/22 16:51 05/11/22 18:20 Temperature 99.6 F Pulse Rate 75 Respiratory Rate 20 Blood Pressure 148/72 H Pulse Oximetry 100 98 Oxygen Delivery Method Room Air 05/11/22 18:22 05/11/22 18:22 05/11/22 18:30 Temperature Pulse Rate 90 90 Respiratory Rate 19 22 Blood Pressure 151/70 H Pulse Oximetry 99 99 Oxygen Delivery Method 05/11/22 22:39 Temperature Pulse Rate 91 H Respiratory Rate 22 Blood Pressure 137/64 Pulse Oximetry 96 Oxygen Delivery Method Room Air Medical Decision Making <Myra Gutierrez, DO - Last Filed: 05/24/22 19:58> Lab Data Result diagrams: 05/11/22 13:55 05/11/22 13:55 Labs: Lab Results 05/11/22 05/11/22 05/11/22 Range/Units 13:55 13:55 13:55 WBC 5.7 (4.5-11.0) X10^3/uL RBC 4.33 (4.0-5.2) X10^6/uL Hgb 13.7 (12.0-16.0) g/dL Hct 41.3 (36-46) % MCV 95.4 (80-100) fL MCH 31.7 (26-34) PG MCHC 33.2 (30-36) % RDW 13.4 (11.6-14.8) % Plt Count 273 (150-400) X10^3/uL Neut % (Auto) 69.0 (50-75) % Lymph % (Auto) 24.3 L (25-40) % [place] % (Auto) 5.6 (3-14) % Eos % (Auto) 0.5 L (2-4) % Baso % (Auto) 0.6 (0-2) % Neut # (Auto) 3900 (1707-1360) /uL Lymph # (Auto) 1400 (5702-9443) /uL [place] # (Auto) 300 (0-900) /uL Eos # (Auto) 0 (0-450) /uL Baso # (Auto) 0 (0-100) /uL Sodium 131 L (137-145) mmol/L Potassium 3.3 L (3.4-5.1) mmol/L Chloride 98 (98-107) mmol/L Carbon Dioxide 18 L (22-32) mmol/L BUN 11 (7-17) mg/dL Creatinine 0.72 (0.52-1.04) mg/dL Estimated GFR > 60 (>60) mL/min BUN/Creatinine Ratio 15.3 (6-22) Glucose 134 H (80-110) mg/dL Lactate 2.9 H (0.7-2.1) mmol/L Calcium 9.3 (8.4-10.2) mg/dL Total Bilirubin 0.8 (0.2-1.3) mg/dL AST 28 (14-36) IU/L ALT 17 (<35) IU/L Alkaline Phosphatase 82 (38-126) U/L Total Creatine Kinase (30-135) U/L CK-MB (CK-2) CK-MB (CK-2) Rel Index Troponin I (0.01-0.034) ng/mL Total Protein 7.4 (6.3-8.2) g/dL Albumin 4.5 (3.5-5.0) g/dL Globulin 2.9 (1.7-4.1) g/dL Albumin/Globulin Ratio 1.6 (1.0-2.8) Lipase 104 (23-300) U/L Procalcitonin 0.03 (<0.5) ng/mL Urine RBC (0-5/HPF) Urine WBC (0-5/HPF) Ur Squamous Epith Cells (0-5/HPF) Urine Bacteria (None) Ur Culture Indicated? Chlamy pneumoniae PCR (Not Detect) Adenovirus (PCR) (Not Detect) B. pertussis DNA (PCR) (Not Detecte) B.parapertussis DNA PCR (Not Detecte) Coronavirus OC43 (PCR) (Not Detect) Coronavirus HKU1 (PCR) (Not Detect) Coronavirus 229E (PCR) (Not Detect) SARS-CoV-2 (PCR) (Not Detecte) Coronavirus NL63 (PCR) (Not Detect) Human Metapneumovir PCR (Not Detect) Influenza Type A (PCR) (Not Detect) Influenza Type B (PCR) (Not Detect) M. pneumoniae (PCR) (Not Detect) Parainfluenza 1 (PCR) (Not Detect) Parainfluenza 2 (PCR) (Not Detect) Parainfluenza 3 (PCR) (Not Detect) Parainfluenza 4 (PCR) (Not Detect) RSV (PCR) (Not Detect) Entero/Rhino (PCR) (Not Detect) 05/11/22 05/11/22 05/11/22 Range/Units 15:10 16:42 17:24 WBC (4.5-11.0) X10^3/uL RBC (4.0-5.2) X10^6/uL Hgb (12.0-16.0) g/dL Hct (36-46) % MCV (80-100) fL MCH (26-34) PG MCHC (30-36) % RDW (11.6-14.8) % Plt Count (150-400) X10^3/uL Neut % (Auto) (50-75) % Lymph % (Auto) (25-40) % [place] % (Auto) (3-14) % Eos % (Auto) (2-4) % Baso % (Auto) (0-2) % Neut # (Auto) (6901-2271) /uL Lymph # (Auto) (0093-8505) /uL [place] # (Auto) (0-900) /uL Eos # (Auto) (0-450) /uL Baso # (Auto) (0-100) /uL Sodium (137-145) mmol/L Potassium (3.4-5.1) mmol/L Chloride (98-107) mmol/L Carbon Dioxide (22-32) mmol/L BUN (7-17) mg/dL Creatinine (0.52-1.04) mg/dL Estimated GFR (>60) mL/min BUN/Creatinine Ratio (6-22) Glucose (80-110) mg/dL Lactate 1.7 (0.7-2.1) mmol/L Calcium (8.4-10.2) mg/dL Total Bilirubin (0.2-1.3) mg/dL AST (14-36) IU/L ALT (<35) IU/L Alkaline Phosphatase (38-126) U/L Total Creatine Kinase (30-135) U/L CK-MB (CK-2) CK-MB (CK-2) Rel Index Troponin I (0.01-0.034) ng/mL Total Protein (6.3-8.2) g/dL Albumin (3.5-5.0) g/dL Globulin (1.7-4.1) g/dL Albumin/Globulin Ratio (1.0-2.8) Lipase (23-300) U/L Procalcitonin (<0.5) ng/mL Urine RBC 0-1/hpf (0-5/HPF) Urine WBC 0-1/hpf (0-5/HPF) Ur Squamous Epith Cells 0-1 /hpf (0-5/HPF) Urine Bacteria Occasional (0-1) (None) Ur Culture Indicated? Culture not indicate Chlamy pneumoniae PCR Not detected (Not Detect) Adenovirus (PCR) Not detected (Not Detect) B. pertussis DNA (PCR) Not detected (Not Detecte) B.parapertussis DNA PCR Not detected (Not Detecte) Coronavirus OC43 (PCR) Not detected (Not Detect) Coronavirus HKU1 (PCR) Not detected (Not Detect) Coronavirus 229E (PCR) Not detected (Not Detect) SARS-CoV-2 (PCR) Not detected (Not Detecte) Coronavirus NL63 (PCR) Not detected (Not Detect) Human Metapneumovir PCR Not detected (Not Detect) Influenza Type A (PCR) Not detected (Not Detect) Influenza Type B (PCR) Not detected (Not Detect) M. pneumoniae (PCR) Not detected (Not Detect) Parainfluenza 1 (PCR) Not detected (Not Detect) Parainfluenza 2 (PCR) Not detected (Not Detect) Parainfluenza 3 (PCR) Not detected (Not Detect) Parainfluenza 4 (PCR) Not detected (Not Detect) RSV (PCR) Not detected (Not Detect) Entero/Rhino (PCR) Not detected (Not Detect) 05/11/22 05/11/22 Range/Units 17:24 19:30 WBC (4.5-11.0) X10^3/uL RBC (4.0-5.2) X10^6/uL Hgb (12.0-16.0) g/dL Hct (36-46) % MCV (80-100) fL MCH (26-34) PG MCHC (30-36) % RDW (11.6-14.8) % Plt Count (150-400) X10^3/uL Neut % (Auto) (50-75) % Lymph % (Auto) (25-40) % [place] % (Auto) (3-14) % Eos % (Auto) (2-4) % Baso % (Auto) (0-2) % Neut # (Auto) (8114-1561) /uL Lymph # (Auto) (6988-2570) /uL [place] # (Auto) (0-900) /uL Eos # (Auto) (0-450) /uL Baso # (Auto) (0-100) /uL Sodium (137-145) mmol/L Potassium (3.4-5.1) mmol/L Chloride (98-107) mmol/L Carbon Dioxide (22-32) mmol/L BUN (7-17) mg/dL Creatinine (0.52-1.04) mg/dL Estimated GFR (>60) mL/min BUN/Creatinine Ratio (6-22) Glucose (80-110) mg/dL Lactate (0.7-2.1) mmol/L Calcium (8.4-10.2) mg/dL Total Bilirubin (0.2-1.3) mg/dL AST (14-36) IU/L ALT (<35) IU/L Alkaline Phosphatase (38-126) U/L Total Creatine Kinase 73 (30-135) U/L CK-MB (CK-2) TNP CK-MB (CK-2) Rel Index TNP Troponin I 0.030 0.033 (0.01-0.034) ng/mL Total Protein (6.3-8.2) g/dL Albumin (3.5-5.0) g/dL Globulin (1.7-4.1) g/dL Albumin/Globulin Ratio (1.0-2.8) Lipase (23-300) U/L Procalcitonin (<0.5) ng/mL Urine RBC (0-5/HPF) Urine WBC (0-5/HPF) Ur Squamous Epith Cells (0-5/HPF) Urine Bacteria (None) Ur Culture Indicated? Chlamy pneumoniae PCR (Not Detect) Adenovirus (PCR) (Not Detect) B. pertussis DNA (PCR) (Not Detecte) B.parapertussis DNA PCR (Not Detecte) Coronavirus OC43 (PCR) (Not Detect) Coronavirus HKU1 (PCR) (Not Detect) Coronavirus 229E (PCR) (Not Detect) SARS-CoV-2 (PCR) (Not Detecte) Coronavirus NL63 (PCR) (Not Detect) Human Metapneumovir PCR (Not Detect) Influenza Type A (PCR) (Not Detect) Influenza Type B (PCR) (Not Detect) M. pneumoniae (PCR) (Not Detect) Parainfluenza 1 (PCR) (Not Detect) Parainfluenza 2 (PCR) (Not Detect) Parainfluenza 3 (PCR) (Not Detect) Parainfluenza 4 (PCR) (Not Detect) RSV (PCR) (Not Detect) Entero/Rhino (PCR) (Not Detect) Urine Dip Bedside Urine Glucose Negative Bedside Urine Bilirubin - Negative Bedside Urine Ketone + 15 Urine Specific [place] 1.005 Bedside Urine Occult Blood + Bedside Urine pH 6.0 Bedside Urine Protein - Negative Bedside Urine Urobilinogen - Negative Bedside Urine Nitrite - Negative Bedside Urine Leukocytes - Negative Esterase Point of care testing: Urine Dip Bedside Urine Glucose Negative Bedside Urine Bilirubin - Negative Bedside Urine Ketone + 15 Urine Specific [place] 1.005 Bedside Urine Occult Blood + Bedside Urine pH 6.0 Bedside Urine Protein - Negative Bedside Urine Urobilinogen - Negative Bedside Urine Nitrite - Negative Bedside Urine Leukocytes - Negative Esterase Imaging Data Chest x-ray: Radiologist's Impression: OTIC ANTAGONIST OBSOLETE] (More??) Close Chest X-Ray (Signed) Bebo Kat - 05/11/22 Ankle X-Ray (Signed) Talya Dave - 02/15/22 Abdomen/Pelvis CT (Signed) Mame Cadena - 11/24/21 Chest X-Ray (Signed) Mame Cadena - 11/04/21 Vascular Ultrasound (Signed) Mame Cadena - 08/17/21 Knee X-Ray (Signed) Xander Adams - 08/17/21 Lumbar Spine X-Ray (Signed) Balbina Parrish - 07/13/21 Chest X-Ray (Signed) Christian Moser - 09/12/20 Bone Densitometry (Signed) Jen Martinez - 06/08/20 Femur MRI (Signed) Bebo Kat - 01/03/20 Femur X-Ray (Signed) Mao Parham - 09/04/19 Mammogram Diagnostic (Signed) Janes Meraz - 03/25/19 Breast Ultrasound (Signed) Janes Meraz - 03/25/19 Head/Neck Ultrasound (Signed) Mao Parham - 03/06/19 Chest X-Ray (Signed) Mao Parham - 02/20/19 Launch?Image [address] [address] XRay Report Signed Patient: Trish Zaidi MR#: [id number] : 1940 Acct:[id number] Age/Sex: 81 / F Date of Service: 05/11/22 Loc: ED Accession Number: [id number] ?? Procedure: XR chest 1V Ordering Provider: Jeannette Ca MD PROCEDURE:? XR CHEST 1V ? INDICATIONS:? suspected sepsis ? TECHNIQUE:? One view of the chest was acquired.? ? COMPARISON:? , , XR CHEST 1V, 11/04/2021, 3:49. ? FINDINGS:? ? Surgical changes and devices:? None.? ? Lungs and pleura:? Lungs are clear.? No pleural effusions or pneumothorax.? ? Mediastinum:? Mediastinal contours appear normal.? Heart size is normal.? ? Bones and chest wall:? No suspicious bony lesions.? Overlying soft tissues appear unremarkable.? ? IMPRESSION:? No acute cardiopulmonary pathology. ? ? Dictated by: Bebo Kat M.D. on 05/11/2022 at 14:52 ? ? Approved by: Bebo Kat M.D. on 05/11/2022 at 14:54?? CT scan - abdomen/pelvis: Radiologist's Impression: [address] [address] [address] Scan Report Signed Patient: Trish Zaidi MR#: [id number] : 1940 Acct:[id number] Age/Sex: 81 / F Date of Service: 05/11/22 Loc: ED Accession Number: [id number] ?? Procedure: CT abdomen pelvis wo con Ordering Provider: Myra Gutierrez D.O. PROCEDURE:? CT ABDOMEN PELVIS WO CON ? INDICATIONS:? lower abd pain ? TECHNIQUE:? Noncontrast 5 mm thick sections acquired from the diaphragms to the symphysis.? 5 mm coronal and sagittal reformats were then performed.? For radiation dose reduction, the following was used:? automated exposure control, adjustment of mA and/or kV according to patient size.? ? COMPARISON:? None. ? FINDINGS:? Image quality:? Excellent.? ? ABDOMEN:? Lung bases:? Lung bases are clear.? Heart size is normal.? ? Solid organs:? Liver is normal in size.? Gallbladder is normal.? Pancreas is normal in contours.? Spleen is normal in size.? No adrenal nodules.? Kidneys are normal in size, without hydronephrosis or nephrolithiasis.? ? Peritoneum and bowel:? The distal esophagus has a small hiatal hernia.? The stomach and small bowel are normal.? The large bowel has a normal caliber and appearance. ? Nodes and vessels:? No retroperitoneal or mesenteric adenopathy by size criteria.? Aorta and inferior vena cava are normal in caliber.? ? Miscellaneous:? No ventral hernias.? ? ? PELVIS:? Genitourinary:? Bladder wall thickness is normal.? ? Miscellaneous:? No inguinal hernias or adenopathy.? ? Bones:? No suspicious bony lesions.? No vertebral body compression fractures.? ? IMPRESSION: ? No acute abdominal or pelvic abnormality.? ? ? Dictated by: Umang Murray M.D. on 05/11/2022 at 17:31 ? ? Approved by: Umang Murray M.D. on 05/11/2022 at 17:35?? ECG Data Attestation: I personally reviewed and interpreted this ECG as follows: Interpretation: Sinus rhythm occasional PVCs rate of 98 VT 166 QRS of 90 QTC 439. Patient has prior from 11/04/[address] depression today in lateral leads as well in lateral leads which is present today as well as 2020. No acute dynamic changes. MDM Narrative Medical decision making narrative: This is a 81-year-old female with complaint of rigors, tachycardia and skipped beats who felt well until about 11:00 a.m. this morning and has some mild tenderness on lower abdominal exam. CBC does not show acute change CMP shows a sodium 131 potassium of 3.1, lactate 2.9 with procalcitonin negative, UA shows some blood which patient states is always present. Troponin was added on, blood cultures are pending urine cultures pending as well. Troponin and respiratory panel were added on as well as CT abdomen pelvis patient's heart rate has been improving with fluids and she was quite hypertensive initially on arrival. Patient signed out to Dr. ramirez while awaiting work up. [1900] (Thierry) Patient received in sign out from [Matt]. I have reviewed the clinical course and performed an independent history and physical exam. Odell barr largely asymptomatic for the duration of her visit, labs have improved, troponin remains very slightly elevated in the indeterminate range. She is had no chest pain, shortness of breath, palpitations, rigors or other for the duration of her visit. There is no obvious or clear indication for hospitalization or further evaluation. Cultures are pending. Patient given extensive return precautions and questions answered to her apparent satisfaction <Jarrell Ramirez, DO - Last Filed: 05/11/22 23:20> Lab Data Labs: Lab Results 05/11/22 05/11/22 05/11/22 Range/Units 13:55 13:55 13:55 WBC 5.7 (4.5-11.0) X10^3/uL RBC 4.33 (4.0-5.2) X10^6/uL Hgb 13.7 (12.0-16.0) g/dL Hct 41.3 (36-46) % MCV 95.4 (80-100) fL MCH 31.7 (26-34) PG MCHC 33.2 (30-36) % RDW 13.4 (11.6-14.8) % Plt Count 273 (150-400) X10^3/uL Neut % (Auto) 69.0 (50-75) % Lymph % (Auto) 24.3 L (25-40) % [place] % (Auto) 5.6 (3-14) % Eos % (Auto) 0.5 L (2-4) % Baso % (Auto) 0.6 (0-2) % Neut # (Auto) 3900 (8020-9535) /uL Lymph # (Auto) 1400 (4249-5014) /uL [place] # (Auto) 300 (0-900) /uL Eos # (Auto) 0 (0-450) /uL Baso # (Auto) 0 (0-100) /uL Sodium 131 L (137-145) mmol/L Potassium 3.3 L (3.4-5.1) mmol/L Chloride 98 (98-107) mmol/L Carbon Dioxide 18 L (22-32) mmol/L BUN 11 (7-17) mg/dL Creatinine 0.72 (0.52-1.04) mg/dL Estimated GFR > 60 (>60) mL/min BUN/Creatinine Ratio 15.3 (6-22) Glucose 134 H (80-110) mg/dL Lactate 2.9 H (0.7-2.1) mmol/L Calcium 9.3 (8.4-10.2) mg/dL Total Bilirubin 0.8 (0.2-1.3) mg/dL AST 28 (14-36) IU/L ALT 17 (<35) IU/L Alkaline Phosphatase 82 (38-126) U/L Total Creatine Kinase (30-135) U/L CK-MB (CK-2) CK-MB (CK-2) Rel Index Troponin I (0.01-0.034) ng/mL Total Protein 7.4 (6.3-8.2) g/dL Albumin 4.5 (3.5-5.0) g/dL Globulin 2.9 (1.7-4.1) g/dL Albumin/Globulin Ratio 1.6 (1.0-2.8) Lipase 104 (23-300) U/L Procalcitonin 0.03 (<0.5) ng/mL Urine RBC (0-5/HPF) Urine WBC (0-5/HPF) Ur Squamous Epith Cells (0-5/HPF) Urine Bacteria (None) Ur Culture Indicated? Chlamy pneumoniae PCR (Not Detect) Adenovirus (PCR) (Not Detect) B. pertussis DNA (PCR) (Not Detecte) B.parapertussis DNA PCR (Not Detecte) Coronavirus OC43 (PCR) (Not Detect) Coronavirus HKU1 (PCR) (Not Detect) Coronavirus 229E (PCR) (Not Detect) SARS-CoV-2 (PCR) (Not Detecte) Coronavirus NL63 (PCR) (Not Detect) Human Metapneumovir PCR (Not Detect) Influenza Type A (PCR) (Not Detect) Influenza Type B (PCR) (Not Detect) M. pneumoniae (PCR) (Not Detect) Parainfluenza 1 (PCR) (Not Detect) Parainfluenza 2 (PCR) (Not Detect) Parainfluenza 3 (PCR) (Not Detect) Parainfluenza 4 (PCR) (Not Detect) RSV (PCR) (Not Detect) Entero/Rhino (PCR) (Not Detect) 05/11/22 05/11/22 05/11/22 Range/Units 15:10 16:42 17:24 WBC (4.5-11.0) X10^3/uL RBC (4.0-5.2) X10^6/uL Hgb (12.0-16.0) g/dL Hct (36-46) % MCV (80-100) fL MCH (26-34) PG MCHC (30-36) % RDW (11.6-14.8) % Plt Count (150-400) X10^3/uL Neut % (Auto) (50-75) % Lymph % (Auto) (25-40) % [place] % (Auto) (3-14) % Eos % (Auto) (2-4) % Baso % (Auto) (0-2) % Neut # (Auto) (4609-0927) /uL Lymph # (Auto) (5156-8397) /uL [place] # (Auto) (0-900) /uL Eos # (Auto) (0-450) /uL Baso # (Auto) (0-100) /uL Sodium (137-145) mmol/L Potassium (3.4-5.1) mmol/L Chloride (98-107) mmol/L Carbon Dioxide (22-32) mmol/L BUN (7-17) mg/dL Creatinine (0.52-1.04) mg/dL Estimated GFR (>60) mL/min BUN/Creatinine Ratio (6-22) Glucose (80-110) mg/dL Lactate 1.7 (0.7-2.1) mmol/L Calcium (8.4-10.2) mg/dL Total Bilirubin (0.2-1.3) mg/dL AST (14-36) IU/L ALT (<35) IU/L Alkaline Phosphatase (38-126) U/L Total Creatine Kinase (30-135) U/L CK-MB (CK-2) CK-MB (CK-2) Rel Index Troponin I (0.01-0.034) ng/mL Total Protein (6.3-8.2) g/dL Albumin (3.5-5.0) g/dL Globulin (1.7-4.1) g/dL Albumin/Globulin Ratio (1.0-2.8) Lipase (23-300) U/L Procalcitonin (<0.5) ng/mL Urine RBC 0-1/hpf (0-5/HPF) Urine WBC 0-1/hpf (0-5/HPF) Ur Squamous Epith Cells 0-1 /hpf (0-5/HPF) Urine Bacteria Occasional (0-1) (None) Ur Culture Indicated? Culture not indicate Chlamy pneumoniae PCR Not detected (Not Detect) Adenovirus (PCR) Not detected (Not Detect) B. pertussis DNA (PCR) Not detected (Not Detecte) B.parapertussis DNA PCR Not detected (Not Detecte) Coronavirus OC43 (PCR) Not detected (Not Detect) Coronavirus HKU1 (PCR) Not detected (Not Detect) Coronavirus 229E (PCR) Not detected (Not Detect) SARS-CoV-2 (PCR) Not detected (Not Detecte) Coronavirus NL63 (PCR) Not detected (Not Detect) Human Metapneumovir PCR Not detected (Not Detect) Influenza Type A (PCR) Not detected (Not Detect) Influenza Type B (PCR) Not detected (Not Detect) M. pneumoniae (PCR) Not detected (Not Detect) Parainfluenza 1 (PCR) Not detected (Not Detect) Parainfluenza 2 (PCR) Not detected (Not Detect) Parainfluenza 3 (PCR) Not detected (Not Detect) Parainfluenza 4 (PCR) Not detected (Not Detect) RSV (PCR) Not detected (Not Detect) Entero/Rhino (PCR) Not detected (Not Detect) 05/11/22 05/11/22 Range/Units 17:24 19:30 WBC (4.5-11.0) X10^3/uL RBC (4.0-5.2) X10^6/uL Hgb (12.0-16.0) g/dL Hct (36-46) % MCV (80-100) fL MCH (26-34) PG MCHC (30-36) % RDW (11.6-14.8) % Plt Count (150-400) X10^3/uL Neut % (Auto) (50-75) % Lymph % (Auto) (25-40) % [place] % (Auto) (3-14) % Eos % (Auto) (2-4) % Baso % (Auto) (0-2) % Neut # (Auto) (4778-9207) /uL Lymph # (Auto) (5647-6028) /uL [place] # (Auto) (0-900) /uL Eos # (Auto) (0-450) /uL Baso # (Auto) (0-100) /uL Sodium (137-145) mmol/L Potassium (3.4-5.1) mmol/L Chloride (98-107) mmol/L Carbon Dioxide (22-32) mmol/L BUN (7-17) mg/dL Creatinine (0.52-1.04) mg/dL Estimated GFR (>60) mL/min BUN/Creatinine Ratio (6-22) Glucose (80-110) mg/dL Lactate (0.7-2.1) mmol/L Calcium (8.4-10.2) mg/dL Total Bilirubin (0.2-1.3) mg/dL AST (14-36) IU/L ALT (<35) IU/L Alkaline Phosphatase (38-126) U/L Total Creatine Kinase 73 (30-135) U/L CK-MB (CK-2) TNP CK-MB (CK-2) Rel Index TNP Troponin I 0.030 0.033 (0.01-0.034) ng/mL Total Protein (6.3-8.2) g/dL Albumin (3.5-5.0) g/dL Globulin (1.7-4.1) g/dL Albumin/Globulin Ratio (1.0-2.8) Lipase (23-300) U/L Procalcitonin (<0.5) ng/mL Urine RBC (0-5/HPF) Urine WBC (0-5/HPF) Ur Squamous Epith Cells (0-5/HPF) Urine Bacteria (None) Ur Culture Indicated? Chlamy pneumoniae PCR (Not Detect) Adenovirus (PCR) (Not Detect) B. pertussis DNA (PCR) (Not Detecte) B.parapertussis DNA PCR (Not Detecte) Coronavirus OC43 (PCR) (Not Detect) Coronavirus HKU1 (PCR) (Not Detect) Coronavirus 229E (PCR) (Not Detect) SARS-CoV-2 (PCR) (Not Detecte) Coronavirus NL63 (PCR) (Not Detect) Human Metapneumovir PCR (Not Detect) Influenza Type A (PCR) (Not Detect) Influenza Type B (PCR) (Not Detect) M. pneumoniae (PCR) (Not Detect) Parainfluenza 1 (PCR) (Not Detect) Parainfluenza 2 (PCR) (Not Detect) Parainfluenza 3 (PCR) (Not Detect) Parainfluenza 4 (PCR) (Not Detect) RSV (PCR) (Not Detect) Entero/Rhino (PCR) (Not Detect) Urine Dip Bedside Urine Glucose Negative Bedside Urine Bilirubin - Negative Bedside Urine Ketone + 15 Urine Specific [place] 1.005 Bedside Urine Occult Blood + Bedside Urine pH 6.0 Bedside Urine Protein - Negative Bedside Urine Urobilinogen - Negative Bedside Urine Nitrite - Negative Bedside Urine Leukocytes - Negative Esterase Point of care testing: Urine Dip Bedside Urine Glucose Negative Bedside Urine Bilirubin - Negative Bedside Urine Ketone + 15 Urine Specific [place] 1.005 Bedside Urine Occult Blood + Bedside Urine pH 6.0 Bedside Urine Protein - Negative Bedside Urine Urobilinogen - Negative Bedside Urine Nitrite - Negative Bedside Urine Leukocytes - Negative Esterase MDM Narrative Medical decision making narrative: This is a 81-year-old female with complaint of rigors, tachycardia and skipped beats who felt well until about 11:00 a.m. this morning and has some mild tenderness on lower abdominal exam. CBC does not show acute change CMP shows a sodium 131 potassium of 3.1, lactate 2.9 with procalcitonin negative, UA shows some blood which patient states is always present. Troponin was added on, blood cultures are pending urine cultures pending as well. Troponin and respiratory panel were added on as well as CT abdomen pelvis patient's heart rate has been improving with fluids and she was quite hypertensive initially on arrival. [1900] (Thierry) Patient received in sign out from [Matt]. I have reviewed t naomi clinical course and performed an independent history and physical exam. Patient largely asymptomatic for the duration of her visit, labs have improved, troponin remains very slightly elevated in the indeterminate range. She is had no chest pain, shortness of breath, palpitations, rigors or other for the duration of her visit. There is no obvious or clear indication for hospitalization or further evaluation. Cultures are pending. Patient given extensive return precautions and questions answered to her apparent satisfaction Discharge Plan Departure Patient Disposition: Home Clinical Impression: Palpitations, Hyponatremia Instructions: High Blood Pressure Activity Restrictions/Additional Instructions: Follow-up with your physician for recheck, your sodium level is slightly low to day and should be followed up. Please return for new worsening symptoms, passing out, chest pain, shortness of breath, persistent vomiting, new swelling in her extremities or other new or concerning symptoms. Prescriptions: No Action acetaminophen 325 mg tablet 650 mg PO QID PRN (Reason: Pain (Scale Score 4-6)) Qty: 0 cholecalciferol (vitamin D3) [Vitamin D3] 2,000 UNIT capsule 4,000 iu PO QDAY Qty: 0 fluticasone propionate 50 mcg/actuation spray,suspension 1 spray INTRANASAL DAILY amoxicillin-pot clavulanate [Augmentin] 500-125 mg tablet 1 tab PO BID Qty: 14 0RF phenazopyridine [Pyridium] 100 mg tablet 100 mg PO TID PRN (Reason: urinary frequency) Qty: 7 0RF Referrals: Eneida Villa ARNP [Primary Care Provider] - Visit Report Forms: Patient Portal/API
--- NOTE | 2022-05-11 16:51 | DI.CT.S_ITS ---
PROCEDURE: CT ABDOMEN PELVIS WO CON INDICATIONS: lower abd pain TECHNIQUE: Noncontrast 5 mm thick sections acquired from the diaphragms to the symphysis. 5 mm coronal and sagittal reformats were then performed. For radiation dose reduction, the following was used: automated exposure control, adjustment of mA and/or kV according to patient size. COMPARISON: None. FINDINGS: Image quality: Excellent. ABDOMEN: Lung bases: Lung bases are clear. Heart size is normal. Solid organs: Liver is normal in size. Gallbladder is normal. Pancreas is normal in contours. Spleen is normal in size. No adrenal nodules. Kidneys are normal in size, without hydronephrosis or nephrolithiasis. Peritoneum and bowel: The distal esophagus has a small hiatal hernia. The stomach and small bowel are normal. The large bowel has a normal caliber and appearance. Nodes and vessels: No retroperitoneal or mesenteric adenopathy by size criteria. Aorta and inferior vena cava are normal in caliber. Miscellaneous: No ventral hernias. PELVIS: Genitourinary: Bladder wall thickness is normal. Miscellaneous: No inguinal hernias or adenopathy. Bones: No suspicious bony lesions. No vertebral body compression fractures. IMPRESSION: No acute abdominal or pelvic abnormality. Dictated by: Umang Murray M.D. on 05/11/2022 at 17:31 Approved by: Umang Murray M.D. on 05/11/2022 at 17:35
[2022-05-11 16:55] LABS: Bacteria Urine Occasional (0-1); RBC Urine 0-1/HPF (0-5/HPF); Squamous Epithelial Cell Urine 0-1 /HPF (0-5/HPF); WBC Urine 0-1/HPF (0-5/HPF)
[2022-05-11 17:41] LABS: Adenovirus Not Detected (Not Detect); B. parapertussis Not Detected (Not Detecte); Bordetella pertussis Not Detected (Not Detecte); Chlamydophila pneumoniae Not Detected (Not Detect); Coronavirus 229E Not Detected (Not Detect); Coronavirus HKU1 Not Detected (Not Detect); Coronavirus NL 63 Not Detected (Not Detect); Coronavirus OC43 Not Detected (Not Detect); Human Metapneumovirus Not Detected (Not Detect); Human Rhinovirus/Enterovirus Not Detected (Not Detect); Influenza A Not Detected (Not Detect); Influenza B Not Detected (Not Detect); Mycoplasma pneumoniae Not Detected (Not Detect); Parainfluenza Virus 1 Not Detected (Not Detect); Parainfluenza Virus 2 Not Detected (Not Detect); Parainfluenza Virus 3 Not Detected (Not Detect); Parainfluenza Virus 4 Not Detected (Not Detect); Respiratory Syncytial Virus Not Detected (Not Detect); SARS- CoV-2 Not Detected (Not Detecte)
[2022-05-11 17:45] LABS: Creatine Kinase 73 U/L (30-135)
[2022-05-11 17:46] LABS: Lactate 2HR (Lactic Acid Rflx) 1.7 mmol/L (0.7-2.1)
[2022-05-11 20:09] LABS: Troponin I 0.033 ng/mL (0.01-0.034)
== END 2022-05-11 23:57 | disposition home or self-care (01) ==
PROVIDERS: Emergency Medicine; Emergency Provider Emergency Medicine; PCP Internal Medicine
DX: R00.2 Palpitations (principal); E87.1 Hypo-osmolality and hyponatremia; R00.0 Tachycardia, unspecified; R10.30 Lower abdominal pain, unspecified
CPT/HCPCS: 36415; 51798; 71045; 74176; 80053; 81003; 81015; 82550; 83605; 83690; 84145; 84484; 85025; 87040; 87086; 87633; 93005; 99284; 99285

== ENCOUNTER → 2022-05-26 11:22 | Outpatient (CLI) | payer OTHER, SELFPAY ==
[2021-11-04 11:07] VITALS: BMI 23.7
--- NOTE | 2022-05-26 | DI.RAD.S_ITS ---
PROCEDURE: XR FEMUR RT MIN 2V INDICATIONS: right thigh pain TECHNIQUE: 2 views of the femur were acquired. COMPARISON: [facility], , XR FEMUR RT MIN 2V, 09/04/2019, 14:58. FINDINGS: Bones: No fractures or dislocations. No suspicious bony lesions. Soft tissues: No suspicious soft tissue calcifications. IMPRESSION: No acute osseous abnormality. If symptoms persist, follow-up radiographs and/or CT or MRI may be helpful for further evaluation. Dictated by: Nabeel Larry M.D. on 05/26/2022 at 13:58 Approved by: Nabeel Larry M.D. on 05/26/2022 at 14:01
== END ==
PROVIDERS: PCP Internal Medicine; Referring Provider Internal Medicine; Visit Provider Internal Medicine
DX: M79.651 Pain in right thigh (principal)
CPT/HCPCS: 73552

== ENCOUNTER → 2022-07-13 14:44 | Outpatient (CLI) | payer OTHER, SELFPAY ==
[2021-11-04 11:07] VITALS: BMI 23.7
== END ==
PROVIDERS: PCP Internal Medicine; Referring Provider Internal Medicine; Visit Provider Internal Medicine
DX: M85.852 Other specified disorders of bone density and structure, left thigh (principal); Z78.0 Asymptomatic menopausal state; Z13.820 Encounter for screening for osteoporosis; M79.651 Pain in right thigh; Z92.23 Personal history of estrogen therapy; Z90.710 Acquired absence of both cervix and uterus
CPT/HCPCS: 77080

== ENCOUNTER → 2022-07-22 12:39 | Outpatient (CLI) | payer OTHER, SELFPAY ==
[2021-11-04 11:07] VITALS: BMI 23.7
--- NOTE | 2022-07-22 12:40 | DI.MRI.S_ITS ---
PROCEDURE: MR HIP RT WO CON INDICATIONS: Trochanteric bursitis, right hip TECHNIQUE: Noncontrast coronal T1 spin echo and STIR through the bony pelvis. Coronal and axial T2 fast spin echo with fat saturation, sagittal T1 spin echo, and oblique axial T2 fast spin echo with fat saturation through the hip. COMPARISON: None. FINDINGS: Image quality: Excellent. Bones and joints: Bone marrow of the pelvic ring and proximal femurs show normal signal throughout. No intraosseous lesions or fractures. No avascular necrosis of the femoral heads. The visualized lower lumbar spine appears normally aligned. Tendons and ligaments: The gluteus medius and minimus tendons appear intact, without associated muscle atrophy. The nearby proximal iliotibial band also appears intact. The iliopsoas tendon appears intact, without adjacent bursal fluid collections or evidence for impingement syndrome. The origin of the hamstring tendon is intact at the ischial tuberosity, as well as the associated sacrotuberous ligament. The straight and reflected heads of the rectus femoris muscle origin appear intact, as well as the conjoint tendon. The ligamentum teres appears intact where visualized. There imaging findings consistent with a [id number] right hip trochanteric bursitis. Labrum and cartilage: The acetabular labrum appears intact in the absence of intra-articular contrast. Cartilage surface of the femoral head appears of normal thickness. The alpha angle of the femur is within normal limits at less than 55 degrees. Soft tissues: Visualized muscles demonstrate normal bulk and internal signal. Quadratus femoris muscle demonstrates no internal edema to suggest ischiofemoral impingement. The proximal sciatic neurovascular bundle appears normal adjacent to the hamstring tendons. No free pelvic fluid. Bladder wall thickness is normal. Genitourinary structures and bowel loops appear normal where visualized. IMPRESSION: 1. [id number] right hip trochanteric bursitis. 2. Mild left hip trochanter bursitis. Dictated by: Tad Mathis M.D. on 07/22/2022 at 13:35 Approved by: Tad Mathis M.D. on 07/22/2022 at 13:38
== END ==
PROVIDERS: PCP Internal Medicine; Referring Provider Internal Medicine; Visit Provider Internal Medicine
DX: M70.62 Trochanteric bursitis, left hip (principal); M70.61 Trochanteric bursitis, right hip; M76.891 Other specified enthesopathies of right lower limb, excluding foot; S82.61XA Displaced fracture of lateral malleolus of right fibula, initial encounter for closed fracture
CPT/HCPCS: 73721

== ENCOUNTER → 2022-10-17 12:25 | Outpatient (CLI) | payer OTHER, SELFPAY ==
[2021-11-04 11:07] VITALS: BMI 23.7
--- NOTE | 2022-10-17 | DI.RAD.S_ITS ---
PROCEDURE: XR FOOT LT MIN 3V INDICATIONS: LEFT FOOT PAIN TECHNIQUE: 3 views of the foot were acquired. COMPARISON: None. FINDINGS: Bones: No acute fractures or dislocations. No suspicious bony lesions. Moderate hallux valgus and mild to moderate degenerative changes of the 1st metatarsophalangeal joint. Scattered degenerative changes are seen at the interphalangeal joints of the toes. Soft tissues: No suspicious soft tissue calcifications. IMPRESSION: Moderate hallux valgus with [id number] degenerative changes of the 1st metatarsophalangeal joint. Approved by: Nabeel Grey M.D. on 10/17/2022 at 16:28
== END ==
PROVIDERS: PCP Internal Medicine; Referring Provider Internal Medicine; Visit Provider Internal Medicine
DX: M20.12 Hallux valgus (acquired), left foot (principal); M79.672 Pain in left foot
CPT/HCPCS: 73630

== ENCOUNTER → 2023-03-13 10:49 | Outpatient (CLI) | payer OTHER, SELFPAY ==
[2021-11-04 11:07] VITALS: BMI 23.7
--- NOTE | 2023-03-13 | DI.US.S_ITS ---
PROCEDURE: US RENAL COMPLETE INDICATIONS: MIXED INCONTINENCE / HEMATURIA TECHNIQUE: Real-time scanning was performed of the kidneys and bladder, with image documentation. COMPARISON: [facility], CT, CT ABDOMEN PELVIS WO CON, 05/11/2022, 16:58. FINDINGS: Kidneys: Kidneys are normal in size. Right kidney measures 10.2 cm long; left kidney measures 1.2 cm long. Right renal cortical thickness is 10.2 cm; left renal cortical thickness is 1.2 cm. Renal cortical echotexture is normal. No hydronephrosis or nephrolithiasis. No suspicious solid mass lesions. Bladder: Pre-void bladder volume is and. Pre-void images demonstrate no intraluminal masses or stones. On pre-void images, neither ureteral jets are noted with color Doppler interrogation. (Of note, ureteral jets may not be detectable in up to 25% of cases due to insufficient differences in specific gravity between ureteral and bladder urine). Miscellaneous: No free pelvic fluid. IMPRESSION: 1. Empty urinary bladder, which is not well seen. A cause for incontinence or hematuria is not identified. Consider CT KUB evaluation. 2. Normal ultrasound appearance of kidneys. No urinary stones or hydronephrosis. Dictated by: Clary Parrish M.D. on 03/13/2023 at 13:15 Approved by: Clary Parrish M.D. on 03/13/2023 at 13:20
== END ==
PROVIDERS: PCP Internal Medicine; Referring Provider Internal Medicine; Visit Provider Internal Medicine
DX: R31.9 Hematuria, unspecified (principal); N39.46 Mixed incontinence
CPT/HCPCS: 76770

== ENCOUNTER → 2023-06-03 11:38 | Outpatient (CLI) | payer OTHER, SELFPAY ==
[2021-11-04 11:07] VITALS: BMI 23.7
--- NOTE | 2023-06-03 11:41 | DI.CT.S_ITS ---
PROCEDURE: CT KIDNEY URETER BLADDER (KUB) INDICATIONS: lower urinary tract symptoms TECHNIQUE: Axial sections were acquired from the lung bases to the pubic symphysis. Coronal and sagittal reformats were performed. For radiation dose reduction, the following was used: automated exposure control, adjustment of mA and/or kV according to patient size. COMPARISON: [facility], CT, CT ABDOMEN PELVIS WO CON, 05/11/2022, 16:58. [facility], CT, CT KIDNEY URETER BLADDER (KUB), 11/24/2021, 13:03. FINDINGS: Image quality: Excellent. Lung bases: Unremarkable. Heart: No significant findings. URINARY: Right Kidney: No stones or hydronephrosis. Right Ureter: No hydroureter. Left Kidney: No stones or hydronephrosis. Left Ureter: No hydroureter. Bladder: Normal wall thickness. No stones. ABDOMEN: Liver: Unremarkable. Gallbladder: Unremarkable. Biliary ducts: Unremarkable. Pancreas: Unremarkable. Spleen: Unremarkable. Adrenal Glands: Unremarkable. Stomach and Bowel: Stomach, small bowel loops, and colon are unremarkable. There is mild metallic artifact adjacent to the duodenal C-loop. This is new compared to prior exam. Peritoneum: No abnormal intraperitoneal fluid. No free air. Ventral Wall: No hernia. Abdominal Nodes: No enlarged retroperitoneal or mesenteric lymph nodes. Vessels: Aorta and inferior vena cava are normal in size. PELVIS: Pelvic Organs: Unremarkable. Pelvic Nodes: Unremarkable. Miscellaneous: No inguinal hernias are seen. Bones: Unremarkable. IMPRESSION: Kidneys, ureter and bladder unremarkable. Artifact is present at the duodenal C-loop. This could represent interval iatrogenic substance. Recommend clinical correlation. Dictated by: Mame Cadena M.D. on 06/03/2023 at 12:17 Approved by: Mame Cadena M.D. on 06/03/2023 at 12:21
== END ==
PROVIDERS: PCP Internal Medicine; Referring Provider Internal Medicine; Visit Provider Internal Medicine
DX: R39.9 Unspecified symptoms and signs involving the genitourinary system (principal); R31.9 Hematuria, unspecified
CPT/HCPCS: 74176

== ENCOUNTER 2024-07-14 22:10 | Emergency (ER) | payer OTHER, SELFPAY ==
[2021-11-04 11:07] VITALS: BMI 23.7
[2024-07-14 22:15] VITALS: BP 197/95; PULSE 112; O2SAT 99
[2024-07-14 22:19] VITALS: BP 197/95; PULSE 116; RESP 18; TEMP 36.4; O2SAT 100; BMI 22.6
--- NOTE | 2024-07-14 22:22 | DI.RAD.S_ITS ---
PROCEDURE: XR CHEST 1V INDICATIONS: chest pain TECHNIQUE: One view of the chest was acquired. COMPARISON: [facility], CR, XR CHEST 1V, 05/11/2022, 14:11. [facility], CR, XR CHEST 1V, 11/04/2021, 3:49. FINDINGS: Surgical changes and devices: None. Lungs and pleura: Lungs are clear. No pleural effusions or pneumothorax. Mediastinum: Mediastinal contours appear normal. Heart size is normal. Bones and chest wall: No suspicious bony lesions. Overlying soft tissues appear unremarkable. IMPRESSION: No acute cardiopulmonary abnormality is seen. Dictated by: Lucio Perrin M.D. on 07/14/2024 at 22:38 Approved by: Lucio Perrin M.D. on 07/14/2024 at 22:38
--- NOTE | 2024-07-14 22:25 | EKG_ITS ---
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
[2024-07-14] MEDS: ASPIRIN 81 MG CHEW TAB 324 MG PO (22:27)
[2024-07-14 22:40] LABS: Add Manual Diff / Slide Review NO; Basophils Absolute Auto 200 /uL (0-100); Basophils Percent Auto 3.5 % (0-2); Eosinophils Absolute Auto 600 /uL (0-450); Eosinophils Percent Auto 9.7 % (2-4); Hematocrit 42.3 % (36-46); Lymphocytes Absolute Auto 2800 /uL (1100-4500); Lymphocytes Percent Auto 42.9 % (25-40); Mean Corpuscular Hemoglobin 32.1 PG (26-34); Mean Corpuscular Volume 97.4 fL (80-100); Monocytes Absolute Auto 500 /uL (0-900); Neutrophils Absolute Auto 2400 /uL (1500-7000); Neutrophils Percent Auto 36.9 % (50-75); Platelet Count 320 X10^3/uL (150-400); Red Blood Cell Count 4.34 X10^6/uL (4.0-5.2); Red Cell Distribution Width 14.2 % (11.6-14.8); White Blood Cell Count 6.5 X10^3/uL (4.5-11.0)
--- NOTE | 2024-07-14 22:42 | ED.ARRPALP ---
HPI - Arrhythmia/Palpitations General Chief Complaint: Arrhythmia/Palpitations Stated Complaint: FAST PULSE 122 Time Seen by Provider: 07/14/24 22:12 Source: patient Mode of arrival: Ambulatory History of Present Illness HPI narrative: 83-year-old female with no reported past medical history, not currently taking any medications presents with 1 hour of elevated blood pressure and elevated heart rate. Patient states that she has been in her usual state of health until this evening when she had 3 episodes of diarrhea and felt her heart rate increased. She says that she believes her resting heart rate is 80-90bpm, however it has been consistently over 100 beats per minute this evening, as high as 122 beats per minute. Denies any other symptoms. Denies abdominal pain, nausea, vomiting, blood in diarrhea. Related Data Home Medications Medication Instructions Recorded Confirmed acetaminophen 325 mg tablet 650 mg PO QID PRN Pain (Scale 02/22/17 11/04/21 Score 4-6) ##0 cholecalciferol (vitamin D3) 50 4,000 iu PO QDAY ##0 02/22/17 11/04/21 mcg (2,000 unit) capsule (Vitamin D3) fluticasone propionate 50 1 spray intranasal DAILY 09/12/20 11/04/21 mcg/actuation nasal spray,suspension Previous Rx's Medication Instructions Recorded amoxicillin 500 mg-potassium 1 tab PO BID #14 tabs 11/05/21 clavulanate 125 mg tablet (Augmentin) phenazopyridine 100 mg tablet 100 mg PO TID PRN urinary 11/24/21 (Pyridium) frequency 6 doses #7 tabs Allergies Allergy/AdvReac Type Severity Reaction Status Date / Time codeine Allergy Mild N/V Verified 07/14/24 22:22 hydrocodone [HYDROCODONE] Allergy Mild N/V Verified 07/14/24 22:22 oxycodone [OXYCODONE] Allergy Mild N/V Verified 07/14/24 22:22 propoxyphene [From DARVON] Allergy Mild N/V Verified 07/14/24 22:22 bupivacaine Allergy Unknown Verified 07/14/24 22:22 NARCOTIC ANTAGONIST OBSOLETE Allergy Unknown UNK Uncoded 11/24/21 12:09 Patient History Medical History Patient denies medical problems Social History household members: spouse Smoking Status: Never smoker Smoking Status: Never smoker alcohol intake frequency: a few times a week Alcohol type: beer Substance Use Type: does not use Exam Initial Vital Signs Initial Vital Signs: Vital Signs Pulse Rate 112 H 07/14/24 22:15 Blood Pressure 197/95 H 07/14/24 22:15 Pulse Oximetry 99 07/14/24 22:15 Const: Awake, alert, no acute distress, nontoxic appearing Cardiac: Tachycardia at a rate of 100-105, regular rhythm RESP: unlabored, clear bilaterally, no wheezing GI: Soft, nontender, nondistended, no rebound, no guarding Skin: Warm, Dry, intact, no rashes Neuro: AO x3, CN II-XII grossly intact, moves all extremities Course Orders Ordered: ED Orders 07/14/24 22:13 EKG-12 Lead Stat 07/14/24 22:22 XR chest 1V Stat 07/14/24 22:30 Complete Blood Count AUTO DIFF Stat Comprehensive Metabolic Panel Stat Lipase Stat Magnesium Stat NT-proBNP (BNP-Adult 18+) Stat PTT Partial Thromboplastin [place] Stat Prothrombin Time INR Stat Troponin & CK Cardiac Panel Stat 07/14/24 23:53 Ictotest Urine Stat Urine Microscopic Stat Discontinued Medications Aspirin (Aspirin 81 Mg Chew Tab) 324 mg PO NOW ONE Stop: 07/14/24 22:23 Last Admin: 07/14/24 22:27 Dose: 324 mg Documented By: AB Vital Signs Vital signs: Vital Signs - 8 hr 07/14/24 22:15 07/14/24 22:19 07/14/24 23:00 Temperature 97.5 F L Pulse Rate 112 H 116 H 91 H Respiratory Rate 18 18 Blood Pressure 197/95 H 197/95 H Pulse Oximetry 99 100 100 Oxygen Delivery Method Room Air Room Air 07/14/24 23:30 Temperature Pulse Rate 89 Respiratory Rate 18 Blood Pressure 131/63 Pulse Oximetry 100 Oxygen Delivery Method Room Air MDM - Arrhythmia/Palpitations Lab Data 07/14/24 22:30 07/14/24 22:30 Labs: Lab Results 07/14/24 07/14/24 Range/Units 22:30 23:53 WBC 6.5 (4.5-11.0) X10^3/uL RBC 4.34 (4.0-5.2) X10^6/uL Hgb 14.0 (12.0-16.0) g/dL Hct 42.3 (36-46) % MCV 97.4 (80-100) fL MCH 32.1 (26-34) PG MCHC 33.0 (30-36) % RDW 14.2 (11.6-14.8) % Plt Count 320 (150-400) X10^3/uL Neut % (Auto) 36.9 L (50-75) % Lymph % (Auto) 42.9 H (25-40) % Mitchell % (Auto) 7.0 (3-14) % Eos % (Auto) 9.7 H (2-4) % Baso % (Auto) 3.5 H (0-2) % Neut # (Auto) 2400 (6944-0142) /uL Lymph # (Auto) 2800 (0446-0904) /uL Mitchell # (Auto) 500 (0-900) /uL Eos # (Auto) 600 H (0-450) /uL Baso # (Auto) 200 H (0-100) /uL PT 9.9 (9.4-12.5) SECONDS INR 0.9 (0.9-1.3) APTT 39 H (25.1-36.5) SECONDS Sodium 134 L (137-145) mmol/L Potassium 3.4 (3.4-5.1) mmol/L Chloride 101 (98-107) mmol/L Carbon Dioxide 23 (22-32) mmol/L BUN 14 (7-17) mg/dL Creatinine 0.73 (0.52-1.04) mg/dL Estimated GFR > 60 (>60) mL/min BUN/Creatinine Ratio 19.2 (6-22) Glucose 187 H (80-110) mg/dL Calcium 9.7 (8.4-10.2) mg/dL Magnesium 1.8 (1.6-2.3) mg/dL Total Bilirubin 0.6 (0.2-1.3) mg/dL AST 31 (14-36) IU/L ALT 19 (<35) IU/L Alkaline Phosphatase 71 (38-126) U/L Total Creatine Kinase 49 (30-135) U/L Troponin I < 0.012 (0.01-0.034) ng/mL NT-Pro-B Natriuret Pep 224 (<450) pg/mL Total Protein 7.6 (6.3-8.2) g/dL Albumin 4.7 (3.5-5.0) g/dL Globulin 2.9 (1.7-4.1) g/dL Albumin/Globulin Ratio 1.6 (1.0-2.8) Lipase 155 (23-300) U/L Ur Bilirubin Confirm Negative (Negative) Urine RBC 0-1/hpf (0-5/HPF) Urine WBC None seen (0-5/HPF) Ur Squamous Epith Cells 1-5 /hpf (0-5/HPF) Urine Bacteria None seen (None) Ur Culture Indicated? Cult not indicated Vol Urine Centrifuged 10ml (spun) Urine Dip Bedside Urine Glucose Negative Bedside Urine Bilirubin + 1 Bedside Urine Ketone - Negative Urine Specific [place] 1.015 Bedside Urine Occult Blood + Bedside Urine pH 6.0 Bedside Urine Protein - Negative Bedside Urine Urobilinogen - Negative Bedside Urine Nitrite - Negative Bedside Urine Leukocytes - Negative Esterase Imaging Data Chest x-ray: Radiologist's Impresson: PROCEDURE: XR CHEST 1V INDICATIONS: chest pain TECHNIQUE: One view of the chest was acquired. COMPARISON: [facility], CR, XR CHEST 1V, 05/11/2022, 14:11. [facility], CR, XR CHEST 1V, 11/04/2021, 3:49. FINDINGS: Surgical changes and devices: None. Lungs and pleura: Lungs are clear. No pleural effusions or pneumothorax. Mediastinum: Mediastinal contours appear normal. Heart size is normal. Bones and chest wall: No suspicious bony lesions. Overlying soft tissues appear unremarkable. IMPRESSION: No acute cardiopulmonary abnormality is seen. Dictated by: Lucio Perrin M.D. on 07/14/2024 at 22:38 Approved by: Lucio Perrin M.D. on 07/14/2024 at 22:38 ECG Data Interpretation: Sinus tachycardia at 107 beats per minute. Normal ND. No ST T wave changes MDM Narrative Medical decision making narrative: Well-appearing patient with tachycardia at home. Preceded by 3 episodes of nonbloody diarrhea. Patient currently has heart rate 100-110 beats per minute, sinus rhythm on assistant editor and on EKG. Physical exam is unremarkable other than the mild tachycardia. Laboratory work, x-ray imaging ordered. Patient states that last time this happened she had sepsis from a UTI. She has no UTI symptoms at this time but we will also check a urine sample. Laboratory work is reviewed, no significant abnormalities identified. While resting in the emergency department the patient's heart rate returned to her reported normal limits without any medication administration or other therapies. Sodium 134, otherwise normal electrolytes. Patient reassessed, resting comfortably in bed, no return of symptoms. Patient relieved to know that her workup is normal here. I advised that I do not know the cause of her elevated heart rate, but with return to normal rate patient stable for home. PCP follow up advised. ED return precautions discussed with patient and partner prior to discharge. Discharge Plan Departure Patient Disposition: Home Clinical Impression: Tachycardia Instructions: DI for Arrhythmias Activity Restrictions/Additional Instructions: Your laboratory work today looks reassuring. There was no sign of infection or significant electrolyte abnormality. Your heart rate has gradually returned to normal and your EKG did not show any sign of atrial fibrillation or other rhythm problem. I do not know the cause of your elevated heart rate, however you should be safe to go home at this time. Follow up with your primary care doctor. If you have return of your elevated heart rate or any other concerning symptoms please return to the emergency department for repeat evaluation. Prescriptions: No Action acetaminophen 325 mg tablet 650 mg PO QID PRN (Reason: Pain (Scale Score 4-6)) Qty: 0 cholecalciferol (vitamin D3) [Vitamin D3] 2,000 UNIT capsule 4,000 iu PO QDAY Qty: 0 fluticasone propionate 50 mcg/actuation spray,suspension 1 spray INTRANASAL DAILY amoxicillin-pot clavulanate [Augmentin] 500-125 mg tablet 1 tab PO BID Qty: 14 0RF phenazopyridine [Pyridium] 100 mg tablet 100 mg PO TID PRN (Reason: urinary frequency) Qty: 7 0RF Referrals: Eneida Villa ARNP [Primary Care Provider] - Stand Alone Forms: Patient Portal/API/Survey
[2024-07-14 22:45] LABS: INR 0.9 (0.9-1.3); Prothrombin Time 9.9 SECONDS (9.4-12.5)
[2024-07-14 22:48] LABS: PTT Partial Thromboplastin Tim 39 SECONDS (25.1-36.5)
[2024-07-14 22:50] LABS: Alanine Aminotransferase 19 IU/L (<35); Albumin 4.7 g/dL (3.5-5.0); Albumin Globulin Ratio 1.6 (1.0-2.8); Alkaline Phosphatase 71 U/L (38-126); Aspartate Aminotransferase 31 IU/L (14-36); BUN Creatinine Ratio 19.2 (6-22); Bilirubin Total 0.6 mg/dL (0.2-1.3); Blood Urea Nitrogen 14 mg/dL (7-17); Calcium 9.7 mg/dL (8.4-10.2); Carbon Dioxide 23 mmol/L (22-32); Chloride 101 mmol/L (98-107); Creatine Kinase 49 U/L (30-135); Estimated Glomerular Filt Rate > 60 mL/min (>60); Globulin 2.9 g/dL (1.7-4.1); Glucose 187 mg/dL (80-110); HEMOLYSIS < 15 (0-50); Lipase 155 U/L (23-300); Magnesium 1.8 mg/dL (1.6-2.3); Potassium 3.4 mmol/L (3.4-5.1); Sodium 134 mmol/L (137-145); Total Protein 7.6 g/dL (6.3-8.2)
[2024-07-14 23:00] VITALS: PULSE 91; RESP 18; O2SAT 100
[2024-07-14 23:01] LABS: NT-proBNP (BNP-Adult 18+) 224 pg/mL (<450); Troponin I < 0.012 ng/mL (0.01-0.034)
[2024-07-14 23:30] VITALS: BP 131/63; PULSE 89; RESP 18; O2SAT 100
[2024-07-15 00:10] LABS: Bacteria Urine None Seen; Culture Indicated Urine Cult Not Indicated; Ictotest Urine Negative (Negative); RBC Urine 0-1/HPF (0-5/HPF); Squamous Epithelial Cell Urine 1-5 /HPF (0-5/HPF); Urine Volume 10mL (spun); WBC Urine None Seen (0-5/HPF)
[2024-07-15 00:26] VITALS: BP 132/61; PULSE 82; RESP 14; O2SAT 99
== END 2024-07-15 00:30 | disposition home or self-care (01) ==
PROVIDERS: Emergency Provider Emergency Medicine; PCP Internal Medicine
DX: R00.0 Tachycardia, unspecified (principal); R19.7 Diarrhea, unspecified; R07.9 Chest pain, unspecified
CPT/HCPCS: 36415; 71045; 80053; 81003; 81015; 82550; 83690; 83735; 83880; 84484; 85025; 85610; 85730; 93005; 93010; 99284

== ENCOUNTER 2025-02-05 11:52 | Emergency (ER) | payer OTHER, SELFPAY ==
[2021-11-04 11:07] VITALS: BMI 23.7
[2025-02-05 11:59] VITALS: PULSE 95; O2SAT 99
[2025-02-05 12:00] VITALS: BP 236/101; PULSE 95; RESP 13; O2SAT 99
[2025-02-05 12:01] VITALS: BP 218/97; PULSE 96; RESP 18; TEMP 36.5; O2SAT 99; BMI 22.6
--- NOTE | 2025-02-05 12:13 | EKG_ITS ---
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
[2025-02-05 12:30] VITALS: BP 179/86; PULSE 84; RESP 16; O2SAT 100
--- NOTE | 2025-02-05 12:38 | PC.NURSE ---
patient states she had elevated blood pressure this am, started having all over shakes, came in.
--- NOTE | 2025-02-05 12:57 | PC.NURSE ---
patient shaking has resolved, patient reports a metallic taste in her mouth, had patient removed her dentures, don't see an obvious source, will report to dr Ludwig.
[2025-02-05 13:00] VITALS: BP 163/79; PULSE 79; RESP 18; O2SAT 100
--- NOTE | 2025-02-05 13:05 | ED.GENADULT ---
HPI - General Adult General Chief complaint: Hypertension Stated complaint: High blood pressure, sent from [facility] Time Seen by Provider: 02/05/25 12:02 Source: patient Mode of arrival: Ambulatory History of Present Illness HPI narrative: Patient is a 84-year-old female no significant past medical history comes into the ED from home for evaluation of high blood pressure. She states that she went to the walk-in clinic for this. She denies any headache visual disturbances chest pain shortness breath fever chills nausea vomiting abdominal pain or any other GI/ symptoms. At time of evaluation patient's initial blood pressure was elevated to 236/101, however patient was able to self normalize without administration of medication here, 179/86. Patient remained without any chest pain shortness breath no focal deficits Related Data Home Medications ?Medication ?Instructions ?Recorded ?Confirmed acetaminophen 325 mg tablet 650 mg PO QID PRN Pain (Scale 02/22/17 11/04/21 Score 4-6) ##0 cholecalciferol (vitamin D3) 50 4,000 iu PO QDAY ##0 02/22/17 11/04/21 mcg (2,000 unit) capsule (Vitamin D3) fluticasone propionate 50 1 spray intranasal DAILY 09/12/20 11/04/21 mcg/actuation nasal spray,suspension Previous Rx's ?Medication ?Instructions ?Recorded amoxicillin 500 mg-potassium 1 tab PO BID #14 tabs 11/05/21 clavulanate 125 mg tablet (Augmentin) phenazopyridine 100 mg tablet 100 mg PO TID PRN urinary 11/24/21 (Pyridium) frequency 6 doses #7 tabs Allergies Allergy/AdvReac Type Severity Reaction Status Date / Time codeine Allergy Mild N/V Verified 07/14/24 22:22 hydrocodone (HYDROCODONE) Allergy Mild N/V Verified 07/14/24 22:22 oxycodone (OXYCODONE) Allergy Mild N/V Verified 07/14/24 22:22 propoxyphene (From DARVON) Allergy Mild N/V Verified 07/14/24 22:22 bupivacaine Allergy Unknown Verified 07/14/24 22:22 procaine (From Novocain) AdvReac Severe Vomiting Verified 02/05/25 12:01 NARCOTIC ANTAGONIST OBSOLETE Allergy Unknown UNK Uncoded 11/24/21 12:09 Review of Systems Review of Systems Narrative: General: Denies fever, chills, weight loss HEENT: Denies headache, eye drainage, eye irritation, head trauma, sore throat, voice change Cardiovascular: Positive hypertension Denies any chest pain, palpitations, tachycardia Respiratory: Denies any shortness of breath, cough, wheeze, stridor GI/: Denies any abdominal pain, nausea, vomiting, diarrhea, bright red blood per rectum, melanotic stools, urinary frequency, urinary retention, dysuria, hematuria MSK: Denies any joint pain, muscle pains, swelling Skin: Denies any rashes, lesions, discoloration Neuro: Denies any headache, lightheadedness, dizziness, fainting, weakness Psych: Denies SI/HI Patient History Medical History Patient denies medical problems Social History household members: spouse Smoking Status: Never smoker alcohol intake frequency: a few times a week Alcohol type: beer Exam Narrative Exam Narrative: General: Cooperative, well-developed, not in acute distress HEENT: Normocephalic, atraumatic, PERRLA, normal sclera, eyelids normal Neck: Active full range of motion, atraumatic Chest: Normal to inspection, negative crepitus, no overlying erythema ecchymosis Respiratory: Normal respiratory effort, not in acute respiratory distress, clear to auscultation bilaterally negative cough, wheeze, tachypnea, rhonchi, rales Cardiology: Regular rate rhythm negative gallop, murmur, rubs GI/: No tenderness to palpation, soft, non rigid, normal to inspection, exam deferred MSK: Full active range of motion in all 4 extremities, atraumatic, no tenderness to palpation of any bony prominences Skin: No rashes or lesions noted Neuro: NIH of 0, no focal deficits Alert awake oriented x3, moves all 4 extremities spontaneously, cranial nerves intact, able to answer all questions appropriately follows commands appropriately Psych: Cooperative, negative suicidal or homicidal ideations Initial Vital Signs Initial Vital Signs: Vital Signs Pulse Rate 95 H 02/05/25 11:59 Pulse Oximetry 99 02/05/25 11:59 Course Orders Ordered: ED Orders 02/05/25 12:03 EKG-12 Lead Stat Vital Signs Vital signs: Vital Signs - 8 hr 02/05/25 11:59 02/05/25 12:00 02/05/25 12:00 Temperature Pulse Rate 95 H 95 H Respiratory Rate 13 Blood Pressure 236/101 H Pulse Oximetry 99 99 Oxygen Delivery Method 02/05/25 12:01 02/05/25 12:30 02/05/25 12:30 Temperature 97.7 F Pulse Rate 96 H 84 Respiratory Rate 18 16 Blood Pressure 218/97 H 179/86 H Pulse Oximetry 99 100 Oxygen Delivery Method Room Air Medical Decision Making Differential Diagnosis Differential Diagnosis: Asymptomatic hypertension, essential hypertension ECG Data Interpretation: EKG interpreted ED physician sinus 81 beats per minute QTC [address] changes no STEMI MDM Narrative Medical decision making narrative: 84-year-old female without any significant past medical history presenting for asymptomatic hypertension. She states that she checked her blood pressure today noticed it was elevated went to the walk-in clinic but was sent here due to elevated blood pressure. At time of evaluation patient not complaining of any headache visual disturbances chest pain shortness breath or any other symptoms. She states that she does not have a history of hypertension. Patient initially presented with SBP in the 200s, however she is self normalized to 179/86 without intervention. Patient not complaining of any other symptoms she was instructed to follow up with primary care in outpatient setting she verbalized understanding of this and agrees to being discharged home with outpatient follow up Discharge Plan Departure Patient Disposition: Home Clinical Impression: Asymptomatic hypertension Instructions: DI for High Blood Pressure Activity Restrictions/Additional Instructions: Follow up with your primary care doctor Please read the discharge instructions sheet carefully and bring all papers to all doctor follow-up visits, as it may contain information that your doctor may want to see. Disease processes change and evolve, if your symptoms worsen or if you develop any new symptoms that are concerning to you please return for evaluation. Your evaluation today does not show any evidence of any life-threatening/serious illnesses requiring admission to the hospital or surgery. Please follow-up with your doctor for re-evaluation in approximately 1 day. Seek immediate medical attention for any worrisome symptoms. *If you do not have a primary care provider please contact the [facility] Resource line at [phone]. They will ask some questions about your medical history and help get you set up with a doctor in the community. Prescriptions: No Action acetaminophen 325 mg tablet 650 mg PO QID PRN (Reason: Pain (Scale Score 4-6)) Qty: 0 cholecalciferol (vitamin D3) [Vitamin D3] 2,000 UNIT capsule 4,000 iu PO QDAY Qty: 0 fluticasone propionate 50 mcg/actuation spray,suspension 1 spray INTRANASAL DAILY amoxicillin-pot clavulanate [Augmentin] 500-125 mg tablet 1 tab PO BID Qty: 14 0RF phenazopyridine [Pyridium] 100 mg tablet 100 mg PO TID PRN (Reason: urinary frequency) Qty: 7 0RF Referrals: Eneida Villa ARNP [Primary Care Provider, Family Practice] Stand Alone Forms: Patient Portal/API
== END 2025-02-05 13:25 | disposition home or self-care (01) ==
PROVIDERS: Emergency Provider Student in an Organized Health Care Education/Training Program; PCP Internal Medicine
DX: I10 Essential (primary) hypertension (principal)
CPT/HCPCS: 36415; 93005; 99283

== ENCOUNTER → 2025-02-28 09:47 | Outpatient (CLI) | payer OTHER, SELFPAY ==
[2021-11-04 11:07] VITALS: BMI 23.7
--- NOTE | 2025-02-28 09:49 | DI.CT.S_ITS ---
PROCEDURE: CT SOFT TISSUE NECK W CON INDICATIONS: squamous cell carcinoma TECHNIQUE: After the administration of intravenous contrast, 3.0 mm axial sections acquired from the sella to the aortic arch. Additional oblique axial 3.0 mm sections acquired through the pharynx. 3 mm thick coronal and sagittal reformats were generated. For radiation dose reduction, the following was used: automated exposure control. COMPARISON: None. FINDINGS: Image quality: Excellent. Lymph nodes: No enlarged lymph nodes seen throughout the neck. Vessels: Visualized vasculature appears patent. Neck spaces: The oropharynx, nasopharynx, and pharynx demonstrate no mucosal lesions. The vocal cords, false vocal cords, pyriform sinuses, epiglottis, vallecula, and tongue base all appear normal. Extramucosal spaces appear unremarkable. Glands: The parotid and submandibular glands appear normal. Thyroid gland is unremarkable. Miscellaneous: Visualized brain and orbits appear normal. Lung apices appear clear. Superficial soft tissues appear normal. Bones: No suspicious bony lesions. Visualized sinuses and mastoids appear unremarkable. Mild degenerative disc disease, most prominent at C5-6 with disc osteophyte complex causing moderate spinal canal narrowing. IMPRESSION: No lymphadenopathy. Dictated by: Enzo Coronel M.D. on 02/28/2025 at 17:02 Approved by: Enzo Coronel M.D. on 02/28/2025 at 17:05
--- NOTE | 2025-02-28 09:49 | DI.CT.S_ITS ---
PROCEDURE: CT CHEST ABD PEL W CON INDICATIONS: squamous cell carcinoma TECHNIQUE: After the administration of intravenous contrast, 5 mm thick sections acquired from the lung apices to the symphysis. 5 mm coronal and sagittal reformats were performed, with additional 7 mm MIP reformats through the lungs. For radiation dose reduction, the following was used: automated exposure control, adjustment of mA and/or kV according to patient size. COMPARISON: None. FINDINGS: Image quality: Excellent. CHEST: Lower Neck: No enlarged lymph nodes. Thyroid: No thyroid nodules which require sonographic follow up, per consensus guidelines. Axillae: No enlarged lymph nodes. Chest Wall: Unremarkable. Lungs and Pleura: No pneumothorax or pleural effusions. No consolidation or suspicious nodules. Heart: Heart size is normal. No pericardial effusion. Thoracic Vessels: The aorta and pulmonary arteries demonstrate normal size. Mediastinum and Mayda: No enlarged lymph nodes. Esophagus: No wall thickening. No hiatal hernia. ABDOMEN: Liver: No solid mass. Gallbladder: No radiopaque gallstones or wall thickening. Biliary ducts: No biliary dilation. Pancreas: No ductal dilation. Spleen: Size is within normal limits. Adrenal Glands: No adrenal nodules. Kidneys and Ureters: No hydronephrosis. No solid mass. No complex renal cystic lesion which requires follow up. Stomach and Bowel: Normal colonic caliber, without significant wall thickening. Peritoneum: No abnormal intraperitoneal fluid. No free air. Ventral Wall: No significant ventral hernia. Abdominal Nodes: No retroperitoneal or mesenteric adenopathy by size criteria. Vessels: Aorta and inferior vena cava are normal in size. PELVIS: Pelvic Organs: Status post hysterectomy. No adnexal mass seen. Bladder: No bladder wall thickening, accounting for underdistention. Pelvic Nodes: No enlarged lymph nodes. Miscellaneous: No inguinal hernias are seen. Bones: No aggressive osseous abnormality. IMPRESSION: No signs of metastatic disease in the chest, abdomen and pelvis. Dictated by: Mark Barnes M.D. on 03/01/2025 at 18:56 Approved by: Mark Barnes M.D. on 03/01/2025 at 19:05
[2025-02-28 10:26] LABS: Estimated Glomerular Filt Rate > 60 mL/min (>60)
== END ==
LOC: CT 09:48
PROVIDERS: Internal Medicine; PCP Family Medicine; Referring Provider Internal Medicine Hematology & Oncology; Visit Provider Internal Medicine Hematology & Oncology
DX: C44.92 Squamous cell carcinoma of skin, unspecified (principal); C79.89 Secondary malignant neoplasm of other specified sites; Z90.710 Acquired absence of both cervix and uterus
CPT/HCPCS: 36415; 70491; 71260; 74177; 82565; Q9967

== ENCOUNTER → 2025-04-29 13:44 | Outpatient (CLI) | payer OTHER, SELFPAY ==
[2021-11-04 11:07] VITALS: BMI 23.7
--- NOTE | 2025-04-29 13:45 | DI.RAD.S_ITS ---
PROCEDURE: XR DEXA AXIAL SKELETON INDICATIONS: OSTEOPENIA COMPARISON: [facility], CR, XR DEXA AXIAL SKELETON, 07/13/2022, 15:01. FINDINGS: Lumbar Spine: Bone mineral density 0.951 (previously 0.936) g/cm2, T score -0.9 (previously -1.0). Left Femoral Neck: Bone mineral density 0.590 (previously 0.586) g/cm2, T score -2.3 (previously -2.4). Left Hip: Bone mineral density 0.842 (previously 0.853) g/cm2, T score -0.8 (previously -0.7). Fracture Risk Calculation (when applicable): 10-year fracture risk of a major osteoporotic fracture 21 percent and of a hip fracture 8.4 percent. (T score greater or equal to -1.0 to: NORMAL) (T score from -1.1 to -2.4: OSTEOPENIA) (T score less than or equal to -2.5: OSTEOPOROSIS) IMPRESSION: Osteopenia--- recommend repeat DEXA in 2-3 years for reassessment. Follow-up guidelines as follows: Osteoporosis: Consider a repeat DEXA and Vertebral Fracture Assessment (VFA) exam in 2 years or sooner if medically necessary, to reassess this patient's status. Osteopenia: Consider a repeat DEXA in 2-3 years to reassess this patient's status, or if there is a new clinical indication. Normal: Consider a repeat DEXA in 5 years or sooner, or if there is a new clinical indication. All treatment decisions require clinical judgment and consideration of individual patient factors, including patient preferences, comorbidities, previous drug use, risk factors not captured in the FRAX model (e.g., frailty, falls, vitamin D deficiency, increased bone turnover, interval significant decline in bone density ) and possible under- or over-estimation of fracture risk by FRAX. In addition, the NOF Guide recommends that FDA-approved medical therapies be considered in postmenopausal women and men age >= 50 years with a: * Hip or vertebral (clinical or morphometric) fracture * T-score of <=-2.5 at the spine or hip * Ten-year fracture probability by FRAX of >= 3% for hip fracture or >=20% for major osteoporotic fracture. Dictated by: Adrián Barnes M.D. on 04/29/2025 at 21:57 Approved by: Adrián Barnes M.D. on 04/29/2025 at 21:59
== END ==
LOC: RAD 13:44
PROVIDERS: PCP Family Medicine; Referring Provider Family Medicine; Visit Provider Family Medicine
DX: M85.852 Other specified disorders of bone density and structure, left thigh (principal); Z78.0 Asymptomatic menopausal state
CPT/HCPCS: 77080

== ENCOUNTER → 2025-07-15 09:57 | Outpatient (CLI) | payer OTHER, SELFPAY ==
[2021-11-04 11:07] VITALS: BMI 23.7
--- NOTE | 2025-07-15 10:00 | DI.CT.S_ITS ---
PROCEDURE: CT SOFT TISSUE NECK W CON INDICATIONS: squamous cell carcinoma TECHNIQUE: After the administration of intravenous contrast, 3.0 mm axial sections acquired from the sella to the aortic arch. Additional oblique axial 3.0 mm sections acquired through the pharynx. 3 mm thick coronal and sagittal reformats were generated. For radiation dose reduction, the following was used: automated exposure control. COMPARISON: [facility], CT, CT SOFT TISSUE NECK W CON, 02/28/2025, 11:18. FINDINGS: Image quality: Excellent. Lymph nodes: No enlarged lymph nodes seen throughout the neck. Vessels: Visualized vasculature appears patent. Neck spaces: The oropharynx, nasopharynx, and pharynx demonstrate no mucosal lesions. The vocal cords, false vocal cords, pyriform sinuses, epiglottis, vallecula, and tongue base all appear normal. Extramucosal spaces appear unremarkable. Glands: The parotid and submandibular glands appear normal. Thyroid gland demonstrates no significant abnormality. Miscellaneous: Visualized brain and orbits appear normal. Lung apices appear clear. Superficial soft tissues appear normal. Bones: No suspicious bony lesions. Degenerative changes of the cervical spine, most pronounced at C5-C6. Visualized sinuses and mastoids appear unremarkable. IMPRESSION: No evidence of metastatic disease. No enlarged cervical lymph nodes. Approved by: Lucio Perrin M.D. on 07/15/2025 at 11:35
--- NOTE | 2025-07-15 10:00 | DI.CT.S_ITS ---
PROCEDURE: CT FACIAL BONES W CON INDICATIONS: squamous cell carcinoma TECHNIQUE: After the administration of intravenous contrast, 2.5 mm axial sections acquired from the mid-neck to the frontal sinuses, with coronal and sagittal reformats. For radiation dose reduction, the following was used: automated exposure control, adjustment of mA and/or kV according to patient size. COMPARISON: None. FINDINGS: Image quality: Excellent. Soft tissues: No edema, masses, or fluid collections. No enlarged lymph nodes. Vascular: Visualized vascular structures appear patent throughout. Bony vascular foramina and canals appear normal. Bones: Facial bones appear intact, without fractures, erosions, or destruction. Visualized portions of the skull base and auditory canals also appear normal. Sinuses: Paranasal sinuses are aerated without fluid levels, mucosal thickening, or mucoceles. Mastoid air cells are aerated. IMPRESSION: No evidence of metastatic disease. Dictated by: Lucio Perrin M.D. on 07/15/2025 at 11:35 Approved by: Lucio Perrin M.D. on 07/15/2025 at 11:41
[2025-07-15 10:27] LABS: Estimated Glomerular Filt Rate > 60 mL/min (>60)
== END ==
LOC: CT 09:59
PROVIDERS: PCP Family Medicine; Referring Provider Internal Medicine Hematology & Oncology; Visit Provider Internal Medicine Hematology & Oncology
DX: C44.92 Squamous cell carcinoma of skin, unspecified (principal); C79.89 Secondary malignant neoplasm of other specified sites; C44.91 Basal cell carcinoma of skin, unspecified
CPT/HCPCS: 36415; 70487; 70491; 82565; Q9967